=== PATIENT | male | born 1955 | race American Indian/Alaskan Native ===

== ENCOUNTER 2020-11-15 08:48 | Inpatient (IN) | payer MEDICARE ==
--- NOTE | 2020-11-15 09:00 | Consultation ---
History of Present Illness Consult date: 11/15/20 Reason for Consult: stroke History of present illness: [facility] Services Date of Service: 11/15/2020 08:43:39 Impression: I63.412 - Cerebrovascular accident (CVA) due to embolism of left middle cerebral artery (HCCC) Comments/Sign-Out: 65 yo M with mild aphasia (compounded by possible language barrier) and mild right sided weakness slight improvement on arrival. Completed areas of left MCA frontal lobe infarct subacute in appearance, with associated hyperdense L MCA distally. Suspect M2 occlusion clinically, verify with CTA to see if more proximal as that could indicate higher risk of larger MCAC territory stroke Given mild symptoms and completed stroke however risk of tPA/hemorrhagic transformation outweighs benefit. Metrics: Last Known Well: 11/15/2020 08:10:00 [facility] Notification Time: 11/15/2020 08:43:29 Arrival Time: 11/15/2020 08:48:00 Stamp Time: 11/15/2020 08:43:39 Time First Login Attempt: 11/15/2020 08:45:31 Symptoms: right sided weakness, confusion NIHSS Start Assessment Time: 11/15/2020 09:04:12 Patient is not a candidate for Alteplase/Activase. Patient was not deemed candidate for Alteplase/Activase thrombolytics because of Mild symptoms with completed stroke. CT head was reviewed and results were: L frontal lobe stroke, acute to subacute with loss of bellamy white as well as hypoattenuation presnet. Also hyperdense sign at L MCA trifurcation Clinical Presentation is Suggestive of Large Vessel Occlusive Disease, Recommendations are as Follows CTA Head and Neck. ED Physician notified of diagnostic impression and management plan on 11/15/2020 09:21:04 Our recommendations are outlined below. Recommendations: Activate Stroke Protocol Admission/Order Set Stroke/Telemetry Floor Neuro Checks Bedside Swallow Eval DVT Prophylaxis IV Fluids, Normal Saline Head of Bed 30 Degrees Euglycemia and Avoid Hyperthermia (PRN Acetaminophen) Antiplatelet Therapy Recommended Full dose aspirin and 300 mg plavix x1 now CTA head and neck STAT If evidence of LVO will call [facility] to discuss If no clot and/or no intervention possible then recommend admission for neuro checks and routine monitoring. Can continue aspirin 81 mg daily (family reports no hx antiplatlets) Routine Consultation with Inhouse Neurology for Follow up Care Sign Out: Discussed with Emergency Department Provider History of Present Illness: Patient is a 65 year old Male. Patient was brought by EMS for symptoms of right sided weakness, confusion 65 yo male hx HTN no prior stroke surgery [place] who had right sided arm weakness, no facial droop, confusion per EMS; family called EMS as this happened 30 min [employer]. Per sister he appeared normal but said he felt different. Then all of a sudden symptoms started in front of them. There may be a language barrier but he is able to name, easily say his phone number birthdate, spell individual letters and repeat (just not full sentences). He has mild pronation but no drift of right arm and mild leg drift with no facial droop. No field cut or sensory loss reported. CT shows acute subacute L MCA ischemic stroke Last seen normal was within 4.5 hours. There is no history of hemorrhagic complications or intracranial hemorrhage. There is no history of Recent Anticoagulants. There is no history of recent major surgery. There is no history of recent stroke. Past Medical History: Hypertension Examination: BP(190s systolic), Pulse(.), Blood Glucose(.) 1A: Level of Consciousness - Alert; keenly responsive + 0 1B: Ask Month and Age - Both Questions Right + 0 1C: Blink Eyes & Squeeze Hands - Performs Both Tasks + 0 2: Test Horizontal Extraocular Movements - Normal + 0 3: Test Visual [place] - No Visual Loss + 0 4: Test Facial Palsy (Use Grimace if Obtunded) - Normal symmetry + 0 5A: Test Left Arm Motor Drift - No Drift for 10 Seconds + 0 5B: Test Right Arm Motor Drift - Drift, but doesn't hit bed + 1 6A: Test Left Leg Motor Drift - No Drift for 5 Seconds + 0 6B: Test Right Leg Motor Drift - Drift, but doesn't hit bed + 1 7: Test Limb Ataxia (FNF/Heel-Fernandez) - No Ataxia + 0 8: Test Sensation - Normal; No sensory loss + 0 9: Test Language/Aphasia - Mild-Moderate Aphasia: Some Obvious Changes, Without Significant Limitation + 1 10: Test Dysarthria - Mild-Moderate Dysarthria: Slurring but can be understood + 1 11: Test Extinction/Inattention - No abnormality + 0 NIHSS Score: 4 Pre-Morbid Modified Ranking Scale: 0 Points = No symptoms at all Patient/Family was informed the Neurology Consult would happen via TeleHealth consult by way of interactive audio and video telecommunications and consented to receiving care in this manner. Due to the immediate potential for life-threatening deterioration due to underlying acute neurologic illness, I spent 35 minutes providing critical care. This time includes time for face to face visit via telemedicine, review of medical records, imaging studies and discussion of findings with providers, the patient and/or family. Dr Misha Ceja [facility] Case [id number]
--- NOTE | 2020-11-15 09:22 | Cat Scan Report ---
CT head/brain wo con INDICATION / CLINICAL INFORMATION: 65 years Male; MAIN. TECHNIQUE: Routine CT head without contrast. All CT scans at this location are performed using CT dos e reduction for ALARA by means of automated exposure control. COMPARISON: None. FINDINGS: BRAIN / INTRACRANIAL CONTENTS: There is decreased attenuation involving the lateral left frontal lobe as well as the frontoparietal junction compatible with infarcts at. There also appears be relative e ffacement along the lateral left frontal region indicative of more acute/subacute process, particular ly given the patient's history of. There is otherwise mild microvascular angiopathy. There is no CT ends of acute intracranial hemorrhag e. The ventricular system is within normal limits in size and configuration. There is a small focus o f relative increased attenuation projected along the left MCA trifurcation which may reflect focus of thrombus given the above findings. ORBITS: No significant abnormality of visualized orbits. SINUSES / MASTOIDS: There is a 2 cm retention cyst seen within the visualized right maxillary sinus. CRANIOCERVICAL JUNCTION: No significant abnormality. ADDITIONAL FINDINGS: None. IMPRESSION: 1. The findings are indicative of evolving infarct involving left frontal lobe as detailed above. The re is no CT ends of acute intracranial hemorrhage. The study was specified as code stroke and called emergently to Dr. Edwards in the ER at 8:15 AM Cent[facility] standard time. Signer Name: Nader Rossi MD Signed: 11/15/2020 9:18 AM Workstation Name: [id number]
--- NOTE | 2020-11-15 09:46 | XRay Report ---
CHEST 1 VIEW 9:09 AM INDICATION / CLINICAL INFORMATION: Neurologic deficit.. COMPARISON: None available. FINDINGS: SUPPORT DEVICES: None. HEART / MEDIASTINUM: The heart size and pulmonary vasculature are normal. LUNGS / PLEURA: Lung volumes are low without significant pulmonary or pleural abnormality. No pneumot horax. ADDITIONAL FINDINGS: No significant additional findings. IMPRESSION: No acute findings. Signer Name: Hua Sotomayor MD Signed: 11/15/2020 9:41 AM Workstation Name: [id number]
[2020-11-15] MEDS ORDERED: ASPIRIN 325 MG TAB PO ONE ×2 (09:58→16:14)
--- NOTE | 2020-11-15 10:04 | Emergency Department Report ---
ED Neuro Deficit HPI - General Stated Complaint: CVA Time Seen by Provider: 11/15/20 09:26 - History of Present Illness Initial Comments: This is a 65-year-old man who does speak [place]ian from [place] arriving as a code stroke. The last known well time was communicated as close to 8:30 in the morning. However CT scan is indicative of a subacute to acute stroke with significant radiographic findings already. The patient is aphasic and he is unable to provide historical information. The has substantial Bulgarian problems and is not tremendously helpful either. As far as I can tell this juncture the patient has a history of hypertension. His compliance with medication is unknown. does not seem to be significantly aware of his medication status. There is no prior history of stroke known. At or about the supposed last well time the patient developed confusion which appears to be aphasia. Paramedics did note right-sided drift. At the door I found moderate right arm drift and questionable left lower extremity drift but the patient could not be adequately examined. He was later given appointment for either on neurologist examination. Indeed, on my reassessment he was apparently less weak in the right upper extremity with pronator drift only and mild weakness of the right lower extremity detectable on drift testing. CT exam was reviewed by the radiologist and discussed with me. The patient has substantial findings consistent with a stroke certainly greater than 6 hours and consequently outside of the window for safe administration of TPA. The patient does have precentral gyrus effacement on the left, edema, hypoattenuation in the left frontal region. He was deemed not a candidate for TPA upon discussion with the teleneurologist. -: unknown (Somewhat uncertain) Location: right arm, right leg History of same: No Place: home Severity: moderate Quality: weak Improves With: none Worsens With: none On Anticoagulants: No Context: other (Uncertain but said to be as above) Associated Symptoms: denies other symptoms (Apparently negative but patient aphasic. Nothing referred by ) Treatments Prior to Arrival: none ED Review of Systems ROS: Stated complaint: CVA Other details as noted in HPI Comment: Unobtainable due to pts medical conditions ED Past Medical Hx - Past Medical History Hx Hypertension: Yes - Social History Substance Use Type: None ED Neuro Physical Exam - General Limitations: Other (Aphasia) General appearance: alert, in no apparent distress Suspected Stroke: Yes - Head Head exam: Present: atraumatic, normocephalic - Eye Eye exam: Present: normal appearance. Absent: scleral icterus - ENT ENT exam: Present: mucous membranes moist - Neck Neck exam: Present: normal inspection. Absent: meningismus - Respiratory Respiratory exam: Present: normal lung sounds bilaterally. Absent: respiratory distress - Cardiovascular Cardiovascular Exam: Present: regular rate, normal rhythm. Absent: systolic murmur, diastolic murmur, rubs, gallop - GI/Abdominal GI/Abdominal exam: Present: soft, normal bowel sounds. Absent: distended, tenderness, guarding, rebound - Rectal Rectal exam: Present: deferred - Extremities Exam Extremities exam: Present: normal inspection - Back Exam Back exam: Present: normal inspection - Neurological Exam Neurological exam: Present: alert, oriented X3, CN II-XII intact (As testable), motor sensory deficit - NIHSS Assessment Interval: Baseline 1a. Level of Consciousness: alert/keenly responsive 1b. LOC Questions: answers both correctly 1c. LOC Commands: performs tasks correctly 2. Best Gaze: normal 3. Visual: no visual loss 4. Facial Palsy: normal symmetrical movement 5b. Motor Arm Right: drift 5a. Motor Arm Left: no drift 6a. Motor Leg Left: no drift 6b. Motor Leg Right: drift 7. Limb Ataxia: absent 8. Sensory: normal 9. Best Language: mild/moderate aphasia 10. Dysarthria: mild/moderate dysarthria 11. Extinction/Inattention: no abnormality Total Score: 4 Stroke Severity: Minor Stroke - Psychiatric Psychiatric exam: Present: normal affect, normal mood - Skin Skin exam: Present: warm, dry, intact, normal color. Absent: rash ED Course Vital Signs 11/15/20 11/15/20 11/15/20 10:09 10:49 10:52 Temperature 98.2 F Pulse Rate 86 86 Respiratory 18 18 Rate Blood Pressure 195/82 184/76 Blood Pressure 195/86 [Right] O2 Sat by Pulse 100 100 Oximetry - Reevaluation(s) Reevaluation #1: Patient will have gentle reduction of his blood pressure if it exceeds parameters. I placed a right EJ in his neck due to lack of peripheral access. CTAs are pending. The patient will be admitted to the hospitalist service for further care and evaluation. 11/15/20 10:08 Reevaluation #2: Patient's only access so far is an EJ in his neck. Radiology will not do CTA studies from the thigh. Teleneurology is aware. They recommended MRI studies after admission. 11/15/20 12:37 Reevaluation #3: Teleneurology recommended only gentle reduction of the blood pressure. 11/15/20 12:39 - EJ/Peripheral Line Neck R Time Out Performed: No Indications: nurses unable to establis Skin Cleansed in Sterile Fashion: Yes Size: 20 Dressing Placed: Tegaderm Patient Tolerated Procedure: no complications - Lab Data Result diagrams: 11/15/20 09:43 11/15/20 09:43 Lab Results 11/15/20 11/15/20 11/15/20 Range/Units 09:34 09:43 09:43 WBC 7.3 (4.5-11.0) K/mm3 RBC 4.78 (3.65-5.03) M/mm3 Hgb 14.6 (11.8-15.2) gm/dl Hct 42.8 (35.5-45.6) % MCV 89 (84-94) fl MCH 30 (28-32) pg MCHC 34 (32-34) % RDW 13.5 (13.2-15.2) % Plt Count 232 (140-440) K/mm3 Lymph % (Auto) 24.3 (13.4-35.0) % [place] % (Auto) 4.9 (0.0-7.3) % Eos % (Auto) 3.1 (0.0-4.3) % Baso % (Auto) 0.6 (0.0-1.8) % Lymph # (Auto) 1.8 (1.2-5.4) K/mm3 [place] # (Auto) 0.4 (0.0-0.8) K/mm3 Eos # (Auto) 0.2 (0.0-0.4) K/mm3 Baso # (Auto) 0.0 (0.0-0.1) K/mm3 Seg Neutrophils % 67.1 (40.0-70.0) % Seg Neutrophils # 4.9 (1.8-7.7) K/mm3 PT 12.7 (12.2-14.9) Sec. INR 0.96 (0.87-1.13) APTT 30.4 (24.2-36.6) Sec. Thrombin Time 16.9 (15.1-19.6) Sec. Sodium (137-145) mmol/L Potassium (3.6-5.0) mmol/L Chloride (98-107) mmol/L Carbon Dioxide (22-30) mmol/L Anion Gap mmol/L BUN (9-20) mg/dL Creatinine (0.8-1.3) mg/dL Estimated GFR ml/min BUN/Creatinine Ratio % Glucose (75-100) mg/dL POC Glucose 99 (70-105) mg/dL Calcium (8.4-10.2) mg/dL Magnesium (1.7-2.3) mg/dL Total Bilirubin (0.1-1.2) mg/dL Direct Bilirubin (0-0.2) mg/dL Indirect Bilirubin mg/dL AST (5-40) units/L ALT (7-56) units/L Alkaline Phosphatase (35-129) units/L Troponin T (0.00-0.029) ng/mL NT-Pro-B Natriuret Pep (0-900) pg/mL Total Protein (6.3-8.2) g/dL Albumin (3.9-5) g/dL Albumin/Globulin Ratio % //20 Range/Units 09:43 WBC (4.5-11.0) K/mm3 RBC (3.65-5.03) M/mm3 Hgb (11.8-15.2) gm/dl Hct (35.5-45.6) % MCV (84-94) fl MCH (28-32) pg MCHC (32-34) % RDW (13.2-15.2) % Plt Count (140-440) K/mm3 Lymph % (Auto) (13.4-35.0) % [place] % (Auto) (0.0-7.3) % Eos % (Auto) (0.0-4.3) % Baso % (Auto) (0.0-1.8) % Lymph # (Auto) (1.2-5.4) K/mm3 [place] # (Auto) (0.0-0.8) K/mm3 Eos # (Auto) (0.0-0.4) K/mm3 Baso # (Auto) (0.0-0.1) K/mm3 Seg Neutrophils % (40.0-70.0) % Seg Neutrophils # (1.8-7.7) K/mm3 PT (12.2-14.9) Sec. INR (0.87-1.13) APTT (24.2-36.6) Sec. Thrombin Time (15.1-19.6) Sec. Sodium 141 (137-145) mmol/L Potassium 3.8 (3.6-5.0) mmol/L Chloride 105.7 (98-107) mmol/L Carbon Dioxide 22 (22-30) mmol/L Anion Gap 17 mmol/L BUN 13 (9-20) mg/dL Creatinine 0.9 (0.8-1.3) mg/dL Estimated GFR > 60 ml/min BUN/Creatinine Ratio 14 % Glucose 118 H (75-100) mg/dL POC Glucose (70-105) mg/dL Calcium 9.5 (8.4-10.2) mg/dL Magnesium 2.00 (1.7-2.3) mg/dL Total Bilirubin 0.60 (0.1-1.2) mg/dL Direct Bilirubin < 0.2 (0-0.2) mg/dL Indirect Bilirubin 0.4 mg/dL AST 27 (5-40) units/L ALT 21 (7-56) units/L Alkaline Phosphatase 59 (35-129) units/L Troponin T < 0.010 (0.00-0.029) ng/mL NT-Pro-B Natriuret Pep 240.5 (0-900) pg/mL Total Protein 8.1 (6.3-8.2) g/dL Albumin 4.4 (3.9-5) g/dL Albumin/Globulin Ratio 1.2 % Laboratory Results - last 24 hr 11/15/20 09:34 POC Glucose 99 - EKG Data -: EKG Interpreted by Me (Pending) - Radiology Data Radiology results: image reviewed BRAIN / INTRACRANIAL CONTENTS: There is decreased attenuation involving the lateral left frontal lobe as well as the frontoparietal junction compatible with infarcts at. There also appears be rela tive effacement along the lateral left frontal region indicative of more acute/subacute process, particularly given the patient's history of. There is otherwise mild microvascular angiopathy. There is no CT ends of acute intracranial hemorrhage. The ventricular system is within normal limits in size and configuration. There is a small focus of relative increased attenuation projected along the left MCA trifurcation which may reflect focus of thrombus given the above findings. ORBITS: No significant abnormality of visualized orbits. SINUSES / MASTOIDS: There is a 2 cm retention cyst seen within the visualized right maxillary sinus. CRANIOCERVICAL JUNCTION: No significant abnormality. ADDITIONAL FINDINGS: None. IMPRESSION: 1. The findings are indicative of evolving infarct involving left frontal lobe as detailed above. There is no CT ends of acute intracranial hemorrhage. - Medical Decision Making Patient was deemed not to be a candidate for TPA due to evolving stroke of g reater than 6 hours and onset. CTA is pending. - Thrombolytic Inclusion/Exclusion Thrombolytic Exclusion Criteria: Symptom Onset > 3 Hours Critical Care Time: Yes Critical care time in (mins) excluding proc time.: 65 Critical care attestation.: If time is entered above; I have spent that time in minutes in the direct care of this critically ill patient, excluding procedure time. ED Disposition Clinical Impression: Uncontrolled hypertension CVA (cerebral vascular accident) Qualifiers: CVA mechanism: unspecified Qualified Code(s): I63.9 - Cerebral infarction, unspecified Disposition: DC-09 OP ADMIT IP TO THIS HOSP Is pt being admited?: Yes Does the pt Need Aspirin: Yes Condition: Stable Instructions: Hypertension (ED) Referrals: ANNABELLE MEHTA MD [Primary Care Provider] - 3-5 Days Time of Disposition: 12:39
[2020-11-15 10:40] LABS: Basophils % (Auto) 0.6 % (0.0-1.8); Eosinophils # (Auto) 0.2 K/mm3 (0.0-0.4); Eosinophils % (Auto) 3.1 % (0.0-4.3); Hematocrit 42.8 % (35.5-45.6); Hemoglobin 14.6 gm/dl (11.8-15.2); Lymphocytes # (Auto) 1.8 K/mm3 (1.2-5.4); Lymphocytes % (Auto) 24.3 % (13.4-35.0); Mean Corpuscular HGB Conc 34 % (32-34); Mean Corpuscular Volume 89 fl (84-94); Monocytes # (Auto) 0.4 K/mm3 (0.0-0.8); Monocytes % (Auto) 4.9 % (0.0-7.3); Platelet Count 232 K/mm3 (140-440); Red Blood Count 4.78 M/mm3 (3.65-5.03); Red Cell Distribution Width 13.5 % (13.2-15.2)
[2020-11-15 10:48] LABS: INR 0.96 (0.87-1.13)
[2020-11-15 10:49] LABS: Partial Thromboplastin Time 30.4 Sec. (24.2-36.6); Thrombin Time 16.9 Sec. (15.1-19.6)
[2020-11-15 10:56] LABS: Alanine Aminotransferase 21 units/L (7-56); Albumin 4.4 g/dL (3.9-5); BUN/Creatinine Ratio 14; Blood Urea Nitrogen 13 mg/dL (9-20); Calcium 9.5 mg/dL (8.4-10.2); Hemolysis Index 33
[2020-11-15 11:00] LABS: Bilirubin,Direct < 0.2 mg/dL (0-0.2)
[2020-11-15] MEDS ORDERED: PROMETHAZINE 25 MG RECT SUPP PR PRN (13:20)
[2020-11-15] MEDS ORDERED: METOCLOPRAMIDE 10 MG TAB PO PRN (13:20)
[2020-11-15] MEDS ORDERED: MAGNESIUM HYDROXIDE (MOM) ORAL LIQD UDC PO PRN (13:20)
[2020-11-15] MEDS ORDERED: ACETAMINOPHEN 325 MG TAB PO PRN (13:20)
[2020-11-15] MEDS ORDERED: ONDANSETRON 4 MG/2 ML INJ IV PRN (13:20)
--- NOTE | 2020-11-15 17:39 | Cat Scan Report ---
CT angio neck INDICATION / CLINICAL INFORMATION: 65 years Male; left MCA stroke. TECHNIQUE: Thin cut axial images obtained through the head during IV bolus contrast administration. S agittal, coronal, and 3 plane MIP reconstructions performed by the technologist. NASCET type criteria used evaluate stenoses. All CT scans at this location are performed using CT dose reduction for ALAR A by means of automated exposure control. COMPARISON: None available. FINDINGS: CAROTID ARTERIES: There is atherosclerotic calcification along the lateral proximal left ICA with ember roximately 40-50% stenosis at the level of the distal left carotid bulb by NASCET criteria. Mild plaq ue is also seen involving more distal segment of the cervical left ICA without significant narrowing. There is no significant stenosis involving right carotid arteries by NASCET criteria. VERTEBRAL ARTERIES: There is diffuse small caliber of the cervical right vertebral artery which appea rs reflect developmental hypoplasia. The left vertebral artery is clearly dominant. There is a focus of calcification involving the left vertebral artery at the C3 level with mild degree of stenosis. ARCH: There is no CTA evidence of significant narrowing involving visualized origins of the arch vess els. There appears be common origin of the brachiocephalic and left common carotid arteries which rep resents a developmental variant. ADDITIONAL FINDINGS: Remainder of the surrounding soft tissues are grossly normal. IMPRESSION: There is atherosclerotic calcification involving the proximal left ICA with 40-50% stenosis by NASCET criteria as detailed above. 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 The CTA head will be dictated separately. Signer Name: Nader Rossi MD Signed: 11/15/2020 5:34 PM Workstation Name: [id number]
--- NOTE | 2020-11-15 17:49 | Cat Scan Report ---
CT angio head INDICATION / CLINICAL INFORMATION: 65 years Male; MAIN. TECHNIQUE: Thin cut axial images obtained through the head during IV bolus contrast administration. S agittal, coronal, and 3 plane MIP reconstructions performed by the technologist. NASCET type criteria used evaluate stenoses. Automated exposure control utilized for radiation reduction purposes. COMPARISON: None available. FINDINGS: INTERNAL CAROTID ARTERIES: There is notable irregularity of the distal internal carotid arteries with atherosclerotic calcification. Findings most notably involving distal left ICA, particularly at the clinoid segment with marked narrowing at. There is moderate narrowing of the corresponding this segme nt on the right. 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 The left vertebral artery is clearly dominant and continues as the basilar artery without significant focal narrowing. CEREBRAL ARTERIES: There is relative decreased attenuation involving the high left lateral frontal co rtical region which correlates with the earlier CT and would be indicative of evolving infarct. Furth ermore, there is relative decreased opacification of the distal vessels within this region compatible with reduced flow. There is also mild irregularity of the more proximal left MCA branches indicative of mild atherosclerotic disease. However, there is no clear further evidence of significant stenosis proximally. There is also developmental hypoplasia of the A1 segment of the right MAY. The right MCA branches ember ear unremarkable. ANEURYSM: None identified. ADDITIONAL FINDINGS: There is notable hypoplasia of the left transverse and sigmoid sinuses which als o appears to be developmental. IMPRESSION: The findings correlate with the earlier CT indicative of evolving infarct involving the high lateral left frontal cortical region. Additionally, there is paucity of vessels within this region on the cur rent CTA compatible with reduced flow. There is notable atherosclerotic calcification involving distal internal carotid arteries, particular ly the clinoid segments with marked narrowing on the left and moderate on the right. 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 Signer Name: Nader Rossi MD Signed: 11/15/2020 5:45 PM Workstation Name: [id number]
--- NOTE | 2020-11-15 18:41 | History and Physical Report ---
History of Present Illness Date of admission: 11/15/20 13:56 Chief complaint: He is weak on his right side History of present illness: 65 YO Male with Obesity Hypoventilation Syndrome, HTN presents to ED for evaluation. Patient is aphasic and is unable to provide history. Patient history is provided by the patient's . As per the patient was in his usual state of health at approximately 0830 hrs. this morning. The patient was subsequently found to have right sided weakness and difficulty speaking. EMS was notified and upon arrival the patient was found to be in distress with a focal neurologic deficit. A code stroke was called and the patient was transported to [facility] for further care and evaluation of the aforementioned symptoms. The patient was seen and evaluated in the emergency department. All lab and imaging studies reviewed. The patient was found to have clinical symptoms consistent with CVA. The patient was placed in observation status and admitted to medical floor and initiated on CVA protocol. The patient was also found to have accelerated hypertension. No reports of fever, chills, chest pain, palpitation, productive cough, skin rash, recent ill contacts, or known exposure to COVID-19. No prior admission for review. No medication listed at time of admission for reconciliation. The patient is aphasic but has a positive gag reflex and is able to protect his airway without difficulty. Advanced care planning conducted in ED. Teleneurology consult placed in ED. Past History Past Medical History: hypertension, other (See HPI) Past Surgical History: No surgical history, Other Social history: . denies: smoking, alcohol abuse Family history: hypertension Medications and Allergies Allergies Allergy/AdvReac Type Severity Reaction Status Date / Time No Known Allergies Allergy Unverified 11/15/20 15:06 Active Meds: Active Medications Acetaminophen (Acetaminophen 325 Mg Tab) 650 mg PO Q4H PRN PRN Reason: Pain, Mild (1-3) Atorvastatin Calcium (Atorvastatin 40 Mg Tab) 40 mg PO QHS DARSHAN Bisacodyl (Bisacodyl 10 Mg Rect Supp) 10 mg GA QDAY PRN PRN Reason: Constipation Clopidogrel Bisulfate (Clopidogrel 75 Mg Tab) 75 mg PO QDAY DARSHAN Magnesium Hydroxide (Magnesium Hydroxide (Mom) Oral Liqd Udc) 30 ml PO Q4H PRN PRN Reason: Constipation Metoclopramide HCl (Metoclopramide 10 Mg Tab) 10 mg PO Q6H PRN PRN Reason: Nausea And Vomiting Ondansetron HCl (Ondansetron 4 Mg/2 Ml Inj) 4 mg IV Q8H PRN PRN Reason: Nausea And Vomiting Promethazine HCl (Promethazine 25 Mg Rect Supp) 25 mg GA Q6H PRN PRN Reason: Nausea And Vomiting Sodium Chloride (Sodium Chloride 0.9% 10 Ml Flush Syringe) 10 ml IV PRN PRN PRN Reason: LINE FLUSH Review of Systems ROS unobtainable: due to mental status Exam - Constitutional Vitals: Temp Pulse Resp BP Pulse Ox 98.2 F 77 17 175/93 97 11/15/20 10:09 11/15/20 16:01 11/15/20 16:01 11/15/20 11:19 11/15/20 16:01 General appearance: Present: no acute distress, obese - EENT Eyes: Present: PERRL ENT: hearing intact, clear oral mucosa - Neck Neck: Present: supple, normal ROM - Respiratory Respiratory effort: normal Respiratory: bilateral: CTA - Cardiovascular Heart Sounds: Present: S1 & S2. Absent: rub, click - Extremities Extremities: pulses symmetrical, No edema Peripheral Pulses: within normal limits - Abdominal General gastrointestinal: Present: soft, non-tender, non-distended, normal bowel sounds Male genitourinary: Present: normal - Integumentary Integumentary: Present: clear, warm, dry - Musculoskeletal Musculoskeletal: right sided weakness - Psychiatric Psychiatric: cooperative - Neurologic Neurologic: CNII-XII intact, moves all extremities, no gait normal HEART Score - HEART Score Troponin: Troponin T < 0.010 ng/mL (0.00-0.029) 11/15/20 09:43 Results - Labs CBC & Chem 7: 11/15/20 09:43 11/15/20 09:43 Labs: Abnormal lab results 11/15/20 Range/Units 09:43 Glucose 118 H (75-100) mg/dL Assessment and Plan - Patient Problems (1) CVA (cerebral vascular accident) Current Visit: Yes Status: Acute Qualifiers: CVA mechanism: unspecified Qualified Code(s): I63.9 - Cerebral infarction, unspecified Plan to address problem: CVA protocol: CT head, neuro check, seizure precautions, aspiration precautions, physical therapy consulted, Occupational Therapy consulted, speech therapy consulted, lipid panel, statin therapy, antiplatelet therapy, supportive care. Teleneurology consulted in ED. Carotid Doppler, echocardiogram. (2) Right hemiparesis Current Visit: Yes Status: Acute Plan to address problem: Physical therapy consulted, supportive care. (3) Obesity hypoventilation syndrome Current Visit: Yes Status: Acute Plan to address problem: Balanced diet, increase physical activity at discharge, outpatient pulmonary follow-up for sleep study. Noninvasive positive pressure ventilation as clinically indicated. (4) Uncontrolled hypertension Current Visit: Yes Status: Acute Plan to address problem: Monitor blood pressure every shift, continue medical management. Permissive hypertension overnight. (5) DVT prophylaxis Current Visit: Yes Status: Acute Plan to address problem: SCD to bilateral lower extremities while in bed, prophylactic anticoagulation (6) Advance care planning Current Visit: Yes Status: Acute Plan to address problem: Disease education conducted, patient is full code, prognosis discussed, care plan discussed, patient's acknowledges understanding and agreement with care plan, +30 minutes.
[2020-11-16 06:52] LABS: Chol/HDL Ratio 3.91 %
--- NOTE | 2020-11-16 10:49 | Progress Note ---
Assessment and Plan Assessment and plan: 65 YO Male with Obesity Hypoventilation Syndrome, HTN presents to ED for evaluation. Patient is aphasic and is unable to provide history. Patient history is provided by the patient's . As per the patient was in his usual state of health at approximately 0830 hrs. this morning. The patient was subsequently found to have right sided weakness and difficulty speaking. EMS was notified and upon arrival the patient was found to be in distress with a focal neurologic deficit. A code stroke was called and the patient was transported to [facility] for further care and evaluation of the aforementioned symptoms. The patient was seen and evaluated in the emergency department. All lab and imaging studies reviewed. The patient was found to have clinical symptoms consistent with CVA. The patient was placed in observation status and admitted to medical floor and initiated on CVA protocol. The patient was also found to have accelerated hypertension. No reports of fever, chills, chest pain, palpitation, productive cough, skin rash, recent ill contacts, or known exposure to COVID-19. No prior admission for review. No medication listed at time of admission for reconciliation. The patient is aphasic but has a positive gag reflex and is able to protect his airway without difficulty. Advanced care planning conducted in ED. Teleneurology consult placed in ED. As per neurology, patient was started on aspirin and loaded with Plavix. CT head performed showed left frontal lobe infarcts. CTA head and neck showed no significant stenosis. Patient has been started on statins. 11/16. Patient remains aphasic. Reportedly passed a swallow evaluation. MRI brain has been ordered. PT/OT pending. Assessment and Plan - Patient Problems (1) CVA (cerebral vascular accident) Current Visit: Yes Status: Acute Qualifiers: CVA mechanism: unspecified Qualified Code(s): I63.9 - Cerebral infarction, unspecified Plan to address problem: CT head showed left frontal lobe infarct. CTA head and neck-negative significant stenosis MRI brain without contrast ordered Echocardiogram pending Neurology evaluation pending Continue Plavix and statins PT/OT ordered Needs speech therapy evaluation for dysphasia (2) Right hemiparesis Current Visit: Yes Status: Acute Plan to address problem: Physical therapy consulted, supportive care. (3) Obesity hypoventilation syndrome Current Visit: Yes Status: Acute Plan to address problem: Balanced diet, increase physical activity at discharge, outpatient pulmonary follow-up for sleep study. Noninvasive positive pressure ventilation as clinically indicated. (4) Uncontrolled hypertension Current Visit: Yes Status: Acute Plan to address problem: Permissive hypertension for 24 to 48 hours (5) DVT prophylaxis Current Visit: Yes Status: Acute Plan to address problem: SCD to bilateral lower extremities while in bed, prophylactic anticoagulation (6) Advance care planning Current Visit: Yes Status: Acute Plan to address problem: Disease education conducted, patient is full code, prognosis discussed, care plan discussed, patient's acknowledges understanding and agreement with care plan, +30 minutes. History Interval history: Patient still has dysphasia Neurology consulted. Awaiting MRI brain Hospitalist Physical - Physical exam Narrative exam: VITAL SIGNS: Reviewed. GENERAL: Awake HEAD: No signs of head trauma. EYES: Pupils are equal. Extraocular motions intact. MOUTH: Oropharynx is normal. NECK: No adenopathy, no JVD. CHEST: Chest with diminished breath sounds bilaterally. No wheezes, rales, or rhonchi. CARDIAC: normal S1 and S2, without murmurs, gallops, or rubs. ABDOMEN: Soft, non tender and non distended. No rebound or guarding, and no masses palpated. Bowel Sounds normal. MUSCULOSKELETAL: No edema NEUROLOGIC EXAM: Alert and oriented x3. Has dysphasia SKIN: No obvious lesions - Constitutional Vitals: Temp Pulse Resp BP Pulse Ox 98.5 F 72 20 165/79 96 11/16/20 05:06 11/16/20 05:06 11/16/20 05:06 11/16/20 05:06 11/16/20 08:31 HEART Score - HEART Score Troponin: Troponin T < 0.010 ng/mL (0.00-0.029) 11/15/20 09:43 Results - Labs CBC & Chem 7: 11/15/20 09:43 11/15/20 09:43 Labs: Laboratory Last Values WBC 7.3 K/mm3 (4.5-11.0) 11/15/20 09:43 RBC 4.78 M/mm3 (3.65-5.03) 11/15/20 09:43 Hgb 14.6 gm/dl (11.8-15.2) 11/15/20 09:43 Hct 42.8 % (35.5-45.6) 11/15/20 09:43 MCV 89 fl (84-94) 11/15/20 09:43 MCH 30 pg (28-32) 11/15/20 09:43 MCHC 34 % (32-34) 11/15/20 09:43 RDW 13.5 % (13.2-15.2) 11/15/20 09:43 Plt Count 232 K/mm3 (140-440) 11/15/20 09:43 Lymph % (Auto) 24.3 % (13.4-35.0) 11/15/20 09:43 Loup % (Auto) 4.9 % (0.0-7.3) 11/15/20 09:43 Eos % (Auto) 3.1 % (0.0-4.3) 11/15/20 09:43 Baso % (Auto) 0.6 % (0.0-1.8) 11/15/20 09:43 Lymph # (Auto) 1.8 K/mm3 (1.2-5.4) 11/15/20 09:43 Loup # (Auto) 0.4 K/mm3 (0.0-0.8) 11/15/20 09:43 Eos # (Auto) 0.2 K/mm3 (0.0-0.4) 11/15/20 09:43 Baso # (Auto) 0.0 K/mm3 (0.0-0.1) 11/15/20 09:43 Seg Neutrophils % 67.1 % (40.0-70.0) 11/15/20 09:43 Seg Neutrophils # 4.9 K/mm3 (1.8-7.7) 11/15/20 09:43 PT 12.7 Sec. (12.2-14.9) 11/15/20 09:43 INR 0.96 (0.87-1.13) 11/15/20 09:43 APTT 30.4 Sec. (24.2-36.6) 11/15/20 09:43 Thrombin Time 16.9 Sec. (15.1-19.6) 11/15/20 09:43 Sodium 141 mmol/L (137-145) 11/15/20 09:43 Potassium 3.8 mmol/L (3.6-5.0) 11/15/20 09:43 Chloride 105.7 mmol/L (98-107) 11/15/20 09:43 Carbon Dioxide 22 mmol/L (22-30) 11/15/20 09:43 Anion Gap 17 mmol/L 11/15/20 09:43 BUN 13 mg/dL (9-20) 11/15/20 09:43 Creatinine 0.9 mg/dL (0.8-1.3) 11/15/20 09:43 Estimated GFR > 60 ml/min 11/15/20 09:43 BUN/Creatinine Ratio 14 % 11/15/20 09:43 Glucose 118 mg/dL (75-100) H 11/15/20 09:43 POC Glucose 91 mg/dL (70-105) 11/15/20 21:19 Calcium 9.5 mg/dL (8.4-10.2) 11/15/20 09:43 Magnesium 2.00 mg/dL (1.7-2.3) 11/15/20 09:43 Total Bilirubin 0.60 mg/dL (0.1-1.2) 11/15/20 09:43 Direct Bilirubin < 0.2 mg/dL (0-0.2) 11/15/20 09:43 Indirect Bilirubin 0.4 mg/dL 11/15/20 09:43 AST 27 units/L (5-40) 11/15/20 09:43 ALT 21 units/L (7-56) 11/15/20 09:43 Alkaline Phosphatase 59 units/L (35-129) 11/15/20 09:43 Troponin T < 0.010 ng/mL (0.00-0.029) 11/15/20 09:43 NT-Pro-B Natriuret Pep 240.5 pg/mL (0-900) 11/15/20 09:43 Total Protein 8.1 g/dL (6.3-8.2) 11/15/20 09:43 Albumin 4.4 g/dL (3.9-5) 11/15/20 09:43 Albumin/Globulin Ratio 1.2 % 11/15/20 09:43 Triglycerides 101 mg/dL (2-149) 11/16/20 05:52 Cholesterol 176 mg/dL (50-199) 11/16/20 05:52 LDL Cholesterol Direct 123 mg/dL (50-130) 11/16/20 05:52 HDL Cholesterol 45 mg/dL (40-59) 11/16/20 05:52 Cholesterol/HDL Ratio 3.91 % 11/16/20 05:52 Dominique/IV: Voiding Method Condom Catheter IV Catheter Type [Right INT / Saline Lock Antecubital] IV Catheter Type [Right INT / Saline Lock External Jugular] Active Medications - Current Medications Current Medications: Generic Name Dose Route Start Last Admin Trade Name Freq PRN Reason Stop Dose Admin Acetaminophen 650 mg 11/15/20 13:20 Acetaminophen 325 Mg Tab PO Q4H PRN Pain, Mild (1-3) Atorvastatin Calcium 80 mg 11/16/20 22:00 Atorvastatin 40 Mg Tab PO QHS DARSHAN Bisacodyl 10 mg 11/15/20 13:20 Bisacodyl [address] QDAY PRN Constipation Clopidogrel Bisulfate 75 mg 11/16/20 10:00 Clopidogrel 75 Mg Tab PO QDAY DARSHAN Magnesium Hydroxide 30 ml 11/15/20 13:20 Magnesium Hydroxide (Mom) Oral Liqd Udc PO Q4H PRN Constipation Metoclopramide HCl 10 mg 11/15/20 13:20 Metoclopramide 10 Mg Tab PO Q6H PRN Nausea And Vomiting Ondansetron HCl 4 mg 11/15/20 13:20 Ondansetron 4 Mg/2 Ml Inj IV Q8H PRN Nausea And Vomiting Promethazine HCl 25 mg 11/15/20 13:20 Promethazine [address] Q6H PRN Nausea And Vomiting Sodium Chloride 10 ml 11/15/20 13:20 Sodium Chloride 0.9% 10 Ml Flush Syringe IV PRN PRN LINE FLUSH
[2020-11-16] MEDS: CLOPIDOGREL 75 MG TAB PO SCH (12:38)
[2020-11-17] MEDS: amLODIPine 10 MG TAB PO SCH ×2 (06:06→10:47)
[2020-11-17] MEDS: CLOPIDOGREL 75 MG TAB PO SCH (10:47)
--- NOTE | 2020-11-17 10:55 | Magnetic Resonance Report ---
NONENHANCED MR SCAN OF THE BRAIN: INDICATION / CLINICAL INFORMATION: CVA. TECHNIQUE: Multiplanar, multisequence MR images of the brain obtained. COMPARISON: CT scan of the head, CTA of the head from 11/15/2020 FINDINGS: BRAIN / INTRACRANIAL CONTENTS: Subacute ischemia in the left middle frontal gyrus extending towards t he left centrum semiovale wall; insular cortex normal; focal cortical subacute ischemia in the left p osterior parietal cortex; internal border zone ischemia in the left centrum semiovale wall; focal pun ctate area of subacute ischemia in the left posterior central gyrus and superior parietal lobule; isc hemia more than 12 hours old (increased T2 signal intensity) but less than 3 days old (low ADC value) ; no hemorrhagic changes Chronic ischemic changes in the right posterior putamen, left caudate head Periventricular and deep hemispheric white matter lesions due to chronic small vessel disease CRANIOCERVICAL JUNCTION: No significant abnormality. VASCULAR FLOW-VOIDS: Normal flow signal in the internal carotid arteries and basilar artery; delayed arterial circulation in the left parietal and frontal region in the CTA ORBITS: No significant abnormality of visualized orbits. SINUSES / MASTOIDS: Mucous retention cyst in the right maxillary sinus ADDITIONAL FINDINGS: None. IMPRESSION: 1. Nonhemorrhagic subacute ischemia in the left cerebral hemisphere Signer Name: Delmi Tavarez MD Signed: 11/17/2020 10:51 AM Workstation Name: [id number]
--- NOTE | 2020-11-17 11:25 | Consultation ---
History of Present Illness Consult date: 11/17/20 Reason for Consult: CVA Chief complaint: Right arm weakness and language difficulty History of present illness: 65 yo male with htn, presenting with acute onset of right arm weakness w/ dysphasia with the initial NCHCT revealing a left frontal ischemic stroke. Patient underwent a CTA Head/Neck w/ wo contrast which reveals ipsilateral distal ICA severe stenosis and proximal 40-50% stenosis. Past History Past Medical History: hypertension, other (See HPI) Past Surgical History: No surgical history, Other Social history: . denies: smoking, alcohol abuse Family history: hypertension Medications and Allergies Allergies Allergy/AdvReac Type Severity Reaction Status Date / Time No Known Allergies Allergy Unverified 11/15/20 15:06 Active Meds: Active Medications Acetaminophen (Acetaminophen 325 Mg Tab) 650 mg PO Q4H PRN PRN Reason: Pain, Mild (1-3) Amlodipine Besylate (Amlodipine 10 Mg Tab) 10 mg PO QDAY [facility] Last Admin: 11/17/20 10:47 Dose: 10 mg Documented by: Atorvastatin Calcium (Atorvastatin 40 Mg Tab) 80 mg PO QHS [facility] Last Admin: 11/16/20 22:06 Dose: 80 mg Documented by: Bisacodyl (Bisacodyl 10 Mg Rect Supp) 10 mg MS QDAY PRN PRN Reason: Constipation Clopidogrel Bisulfate (Clopidogrel 75 Mg Tab) 75 mg PO QDAY [facility] Last Admin: 11/17/20 10:47 Dose: 75 mg Documented by: Labetalol HCl (Labetalol 20 Mg/4 Ml Inj) 10 mg IV Q8HR PRN PRN Reason: Blood Pressure Last Admin: 11/16/20 18:42 Dose: 10 mg Documented by: Magnesium Hydroxide (Magnesium Hydroxide (Mom) Oral Liqd Udc) 30 ml PO Q4H PRN PRN Reason: Constipation Metoclopramide HCl (Metoclopramide 10 Mg Tab) 10 mg PO Q6H PRN PRN Reason: Nausea And Vomiting Ondansetron HCl (Ondansetron 4 Mg/2 Ml Inj) 4 mg IV Q8H PRN PRN Reason: Nausea And Vomiting Promethazine HCl (Promethazine 25 Mg Rect Supp) 25 mg MS Q6H PRN PRN Reason: Nausea And Vomiting Sodium Chloride (Sodium Chloride 0.9% 10 Ml Flush Syringe) 10 ml IV PRN PRN PRN Reason: LINE FLUSH Physical Examination - Vital Signs Vital Signs: Vital Signs Pulse Ox 99 11/15/20 09:10 - Physical Exam Narrative exam: Patient is not seen in the room. Results - Laboratory Findings CBC and BMP: 11/15/20 09:43 11/15/20 09:43 Abnormal Lab Findings: Abnormal Labs 11/15/20 09:43 Glucose 118 H Assessment and Plan 65 yo male with htn, presenting with acute onset of right arm weakness w/ dysphasia with the initial NCHCT revealing a left frontal ischemic stroke. 1. Acute Ischemic (Artery to Artery) Embolic Stroke - ASpirin 325 mg PO day or ASA 300 mg MS qday statin therapy for a goal LDL of 70; confirm A1c, LDL, TSH- T4, TTE, pt/ot/st evaluation/monitoring, telemetry. 2. LICA Stenosis - recommend transfer for cerebral angiography to confirm/deny if the distal LICA is amenable to stenting or not. 3. Hypertension - sbp 160-200 mmHg / dbp 80-100 mmHg. 4. Expressive Dysphasia - st evaluation/monitoring w/ swallow evaluation. 5. Right arm weakness - pt/ot evaluation/monitoring. Truong Sotomayor MD Neurology
--- NOTE | 2020-11-17 15:38 | Progress Note ---
Assessment and Plan Assessment and plan: 65 YO Male with Obesity Hypoventilation Syndrome, HTN presents to ED for evaluation. Patient is aphasic and is unable to provide history. Patient history is provided by the patient's . As per the patient was in his usual state of health at approximately 0830 hrs. this morning. The patient was subsequently found to have right sided weakness and difficulty speaking. EMS was notified and upon arrival the patient was found to be in distress with a focal neurologic deficit. A code stroke was called and the patient was transported to [facility] for further care and evaluation of the aforementioned symptoms. The patient was seen and evaluated in the emergency department. All lab and imaging studies reviewed. The patient was found to have clinical symptoms consistent with CVA. The patient was placed in observation status and admitted to medical floor and initiated on CVA protocol. The patient was also found to have accelerated hypertension. No reports of fever, chills, chest pain, palpitation, productive cough, skin rash, recent ill contacts, or known exposure to COVID-19. No prior admission for review. No medication listed at time of admission for reconciliation. The patient is aphasic but has a positive gag reflex and is able to protect his airway without difficulty. Advanced care planning conducted in ED. Teleneurology consult placed in ED. As per neurology, patient was started on aspirin and loaded with Plavix. CT head performed showed left frontal lobe infarcts. CTA head and neck showed no significant stenosis. Patient has been started on statins. 11/16. Patient remains aphasic. Reportedly passed a swallow evaluation. MRI brain has been ordered. PT/OT pending. 11/17. MRI brain showed nonhemorrhagic CVA in the left cerebral hemisphere. PT recommending rehab-discussed with manager of case. Needs a COVID-19 test. Assessment and Plan - Patient Problems (1) CVA (cerebral vascular accident) Current Visit: Yes Status: Acute Qualifiers: CVA mechanism: unspecified Qualified Code(s): I63.9 - Cerebral infarction, unspecified Plan to address problem: CT head showed left frontal lobe infarct. CTA head and neck-negative significant stenosis MRI brain without contrast-left subacute CVA Echocardiogram-no PFO/shunt or probe Neurology evaluation pending Continue Plavix and statins PT/OT ordered-PT recommends rehab Continue speech therapy (2) Right hemiparesis Current Visit: Yes Status: Acute Plan to address problem: Physical therapy recommends rehab (3) Obesity hypoventilation syndrome Current Visit: Yes Status: Acute Plan to address problem: Balanced diet, increase physical activity at discharge, outpatient pulmonary follow-up for sleep study. Noninvasive positive pressure ventilation as clinically indicated. (4) Uncontrolled hypertension Current Visit: Yes Status: Acute Plan to address problem: Resume blood pressure medication (5) DVT prophylaxis Current Visit: Yes Status: Acute Plan to address problem: SCD to bilateral lower extremities while in bed, prophylactic anticoagulation (6) Advance care planning Current Visit: Yes Status: Acute Plan to address problem: Needs placement Needs a Covid test History Interval history: His dysphagia is better today MRI brain confirmed left subacute stroke Neurology consulted Physical therapy recommending rehab. Discussed with manager of case Hospitalist Physical - Physical exam Narrative exam: VITAL SIGNS: Reviewed. GENERAL: Awake HEAD: No signs of head trauma. EYES: Pupils are equal. Extraocular motions intact. MOUTH: Oropharynx is normal. NECK: No adenopathy, no JVD. CHEST: Chest with diminished breath sounds bilaterally. No wheezes, rales, or rhonchi. CARDIAC: normal S1 and S2, without murmurs, gallops, or rubs. ABDOMEN: Soft, non tender and non distended. No rebound or guarding, and no masses palpated. Bowel Sounds normal. MUSCULOSKELETAL: No edema NEUROLOGIC EXAM: Alert and oriented x3. Has dysphasia SKIN: No obvious lesions - Constitutional Vitals: Temp Pulse Resp BP Pulse Ox 97.4 F L 84 18 178/67 94 11/17/20 11:00 11/17/20 11:00 11/17/20 11:00 11/17/20 11:00 11/17/20 06:19 HEART Score - HEART Score Troponin: Troponin T < 0.010 ng/mL (0.00-0.029) 11/15/20 09:43 Results - Labs CBC & Chem 7: 11/15/20 09:43 11/15/20 09:43 Labs: Laboratory Last Values WBC 7.3 K/mm3 (4.5-11.0) 11/15/20 09:43 RBC 4.78 M/mm3 (3.65-5.03) 11/15/20 09:43 Hgb 14.6 gm/dl (11.8-15.2) 11/15/20 09:43 Hct 42.8 % (35.5-45.6) 11/15/20 09:43 MCV 89 fl (84-94) 11/15/20 09:43 MCH 30 pg (28-32) 11/15/20 09:43 MCHC 34 % (32-34) 11/15/20 09:43 RDW 13.5 % (13.2-15.2) 11/15/20 09:43 Plt Count 232 K/mm3 (140-440) 11/15/20 09:43 Lymph % (Auto) 24.3 % (13.4-35.0) 11/15/20 09:43 [place] % (Auto) 4.9 % (0.0-7.3) 11/15/20 09:43 Eos % (Auto) 3.1 % (0.0-4.3) 11/15/20 09:43 Baso % (Auto) 0.6 % (0.0-1.8) 11/15/20 09:43 Lymph # (Auto) 1.8 K/mm3 (1.2-5.4) 11/15/20 09:43 [place] # (Auto) 0.4 K/mm3 (0.0-0.8) 11/15/20 09:43 Eos # (Auto) 0.2 K/mm3 (0.0-0.4) 11/15/20 09:43 Baso # (Auto) 0.0 K/mm3 (0.0-0.1) 11/15/20 09:43 Seg Neutrophils % 67.1 % (40.0-70.0) 11/15/20 09:43 Seg Neutrophils # 4.9 K/mm3 (1.8-7.7) 11/15/20 09:43 PT 12.7 Sec. (12.2-14.9) 11/15/20 09:43 INR 0.96 (0.87-1.13) 11/15/20 09:43 APTT 30.4 Sec. (24.2-36.6) 11/15/20 09:43 Thrombin Time 16.9 Sec. (15.1-19.6) 11/15/20 09:43 Sodium 141 mmol/L (137-145) 11/15/20 09:43 Potassium 3.8 mmol/L (3.6-5.0) 11/15/20 09:43 Chloride 105.7 mmol/L (98-107) 11/15/20 09:43 Carbon Dioxide 22 mmol/L (22-30) 11/15/20 09:43 Anion Gap 17 mmol/L 11/15/20 09:43 BUN 13 mg/dL (9-20) 11/15/20 09:43 Creatinine 0.9 mg/dL (0.8-1.3) 11/15/20 09:43 Estimated GFR > 60 ml/min 11/15/20 09:43 BUN/Creatinine Ratio 14 % 11/15/20 09:43 Glucose 118 mg/dL (75-100) H 11/15/20 09:43 POC Glucose 102 mg/dL (70-105) 11/16/20 21:31 Calcium 9.5 mg/dL (8.4-10.2) 11/15/20 09:43 Magnesium 2.00 mg/dL (1.7-2.3) 11/15/20 09:43 Total Bilirubin 0.60 mg/dL (0.1-1.2) 11/15/20 09:43 Direct Bilirubin < 0.2 mg/dL (0-0.2) 11/15/20 09:43 Indirect Bilirubin 0.4 mg/dL 11/15/20 09:43 AST 27 units/L (5-40) 11/15/20 09:43 ALT 21 units/L (7-56) 11/15/20 09:43 Alkaline Phosphatase 59 units/L (35-129) 11/15/20 09:43 Troponin T < 0.010 ng/mL (0.00-0.029) 11/15/20 09:43 NT-Pro-B Natriuret Pep 240.5 pg/mL (0-900) 11/15/20 09:43 Total Protein 8.1 g/dL (6.3-8.2) 11/15/20 09:43 Albumin 4.4 g/dL (3.9-5) 11/15/20 09:43 Albumin/Globulin Ratio 1.2 % 11/15/20 09:43 Triglycerides 101 mg/dL (2-149) 11/16/20 05:52 Cholesterol 176 mg/dL (50-199) 11/16/20 05:52 LDL Cholesterol Direct 123 mg/dL (50-130) 11/16/20 05:52 HDL Cholesterol 45 mg/dL (40-59) 11/16/20 05:52 Cholesterol/HDL Ratio 3.91 % 11/16/20 05:52 - Diagnostic Impressions Diagnostic Impressions: Echocardiogram 11/15/20 13:22 Transthoracic Echocardiogram Indication: Stroke BP: 162/89 HR: 80 Conclusions *The left ventricular chamber size is normal. *Mild concentric left ventricular hypertrophy is observed. *Global left ventricular wall motion and contractility are within normal limits. *The estimated ejection fraction is 60-65%. *There is an E to A reversal in the mitral valve flow pattern suggestive of diastolic dysfunction. *There is trace of aortic regurgitation. *No evidence of right to left shunt documented on saline contrast injetion. * * Findings Left Ventricle: The left ventricular chamber size is normal. Mild concentric left ventricular hypertrophy is observed. Global left ventricular wall motion and contractility are within normal limits. Global left ventricular systolic function is normal. The estimated ejection fraction is 60-65%. There is an E to A reversal in the mitral valve flow pattern suggestive of diastolic dysfunction. Left Atrium: The left atrial chamber size is normal. Right Ventricle: The right ventricular cavity size is normal. The right ventricular global systolic function is normal. Right Atrium: The right atrial cavity size is normal. Aortic Valve: Mild aortic leaflet calcification is visualized. There is trace of aortic regurgitation. Mitral Valve: Mild mitral leaflet calcification is visualized. There is trace of mitral regurgitation. Tricuspid Valve: The tricuspid valve leaflets are normal. There is trace tricuspid regurgitation. The right ventricular systolic pressure is calculated at 24 mmHg. Pulmonic Valve: There is no evidence of pulmonic valve thickening. There is trace pulmonic regurgitation. Pericardium: There is no pericardial effusion. Aorta: The aorta appears normal. Venous: The inferior vena cava is not visualized. Contrast: Intravenous agitated saline contrast was used to assess intracardiac shunting. No evidence of right to left shunt documented on saline contrast injetion. Measurements Chambers 2D Name Value Normal Range IVSd (2D) 1.28 cm (0.6 - 1.1) LVPWd (2D) 1.34 cm (0.6 - 1.1) LVIDd (2D) 4.01 cm (3.7 - 5.6) LVIDs (2D) 2.59 cm (2 - 3.8) LV FS (2D) 35.4 % - EF Teichholz (2D) 65.37 % - Ao root diameter (2D) 3.62 cm (2 - 3.7) Volumes/Mass Name Value Normal Range LA ESV SP 4CH (A/L) 48.59 ml - LA ESV SP 2CH (A/L) 47.06 ml - LA ESV BP (A/L) 52.22 ml - LA ESV BP (A/L) index 23.42 ml/m2 - LA ESV SP 4CH (MOD) 45.66 ml - LA ESV SP 2CH (MOD) 43.58 ml - LA ESV BP (MOD) 48.67 ml - LA ESV BP (MOD) index 21.82 ml/m2 - Diastolic/Systolic Function Name Value Normal Range MV E-wave Vmax 0.6 m/sec - MV deceleration time 291.01 msec - MV A-wave Vmax 0.97 m/sec - MV E:A ratio 0.62 ratio - Aortic Valve Name Value Normal Range AV Vmax 1.31 m/sec - AV VTI 25.9 cm - AV peak gradient 6.87 mmHg - AV mean gradient 3.97 mmHg - LVOT diameter 2.05 cm - LVOT Vmax 1.17 m/sec - LVOT VTI 23.73 cm - LVOT peak gradient 5.43 mmHg - LVOT mean gradient 2.68 mmHg - SV LVOT 78.65 ml - EMMETT (continuity Vmax) 2.95 cm2 - EMMETT (continuity VTI) 3.04 cm2 - AR PHT 606.05 msec - AR peak gradient 23.66 mmHg - Ascending Ao 3.33 cm - Tricuspid Valve Name Value Normal Range TR Vmax 1.97 m/sec - TR peak gradient 16 mmHg - RAP 8 mmHg - RVSP 24 mmHg - Pulmonic Valve/Qp:Qs Name Value Normal Range PV Vmax 0.88 m/sec - PV peak gradient 3.09 mmHg - MA end-diastolic Vmax 0.88 m/sec - PV acceleration time 110.37 msec - Dominique/IV: Voiding Method Condom Catheter IV Catheter Type [Right INT / Saline Lock Antecubital] IV Catheter Type [Right INT / Saline Lock External Jugular] Active Medications - Current Medications Current Medications: Generic Name Dose Route Start Last Admin Trade Name Freq PRN Reason Stop Dose Admin Acetaminophen 650 mg 11/15/20 13:20 Acetaminophen 325 Mg Tab PO Q4H PRN Pain, Mild (1-3) Amlodipine Besylate 10 mg 11/17/20 06:00 11/17/20 10:47 Amlodipine 10 Mg Tab PO 10 mg QDAY DARSHAN Administration Atorvastatin Calcium 80 mg 11/16/20 22:00 11/16/20 22:06 Atorvastatin 40 Mg Tab PO 80 mg QHS DARSHAN Administration Bisacodyl 10 mg 11/15/20 13:20 Bisacodyl 10 Mg Rect Supp MA QDAY PRN Constipation Clopidogrel Bisulfate 75 mg 11/16/20 10:00 11/17/20 10:47 Clopidogrel 75 Mg Tab PO 75 mg QDAY DARSHAN Administration Labetalol HCl 10 mg 11/16/20 18:34 11/16/20 18:42 Labetalol 20 Mg/4 Ml Inj IV 10 mg Q8HR PRN Administration Blood Pressure Magnesium Hydroxide 30 ml 11/15/20 13:20 Magnesium Hydroxide (Mom) Oral Liqd Udc PO Q4H PRN Constipation Metoclopramide HCl 10 mg 11/15/20 13:20 Metoclopramide 10 Mg Tab PO Q6H PRN Nausea And Vomiting Ondansetron HCl 4 mg 11/15/20 13:20 Ondansetron 4 Mg/2 Ml Inj IV Q8H PRN Nausea And Vomiting Promethazine HCl 25 mg 11/15/20 13:20 Promethazine 25 Mg Rect Supp MA Q6H PRN Nausea And Vomiting Sodium Chloride 10 ml 11/15/20 13:20 Sodium Chloride 0.9% 10 Ml Flush Syringe IV PRN PRN LINE FLUSH
[2020-11-17] MEDS: VALSARTAN 160MG TAB PO SCH (16:52)
[2020-11-18] MEDS: VALSARTAN 160MG TAB PO SCH (09:45)
[2020-11-18] MEDS: amLODIPine 10 MG TAB PO SCH (09:46)
[2020-11-18] MEDS: CLOPIDOGREL 75 MG TAB PO SCH (09:47)
--- NOTE | 2020-11-18 10:24 | Event Note ---
Date: 11/18/20 Patient ok to admit to IRU AFTER Carotid Duplex is complete. It was ordered on 11/15 as part of CVA workup. COVID-19 test is pending, if POSITIVE can admit to rehab on COVID floor. Please call with any questions.
--- NOTE | 2020-11-18 12:24 | Discharge Summary ---
Providers - Providers Date of Admission: 11/17/20 08:22 Date of discharge: 11/18/20 Attending physician: MANJIT HERNANDEZ 11/15/20 13:20 Consult to Case Management [CONS] Routine Services Needed at Discharge: Other Notified:: upon arrival to floor Additional Physician Instructions: discharge planning Occupational Therapy Evaluate and Treat [CONS] Routine Comment: Reason For Exam: Neuro deficits Physical Therapy Evaluation and Treat [CONS] Routine Comment: Reason For Exam: Neuro deficits 11/15/20 13:21 Speech Therapy Evaluation and Treat [CONS] Routine Reason For Exam: swallow eval 11/16/20 07:36 Consult to Physician [CONS] Routine Comment: Consulting Provider: AARON JULIAN Physician Instructions: Reason For Exam: CVA 11/18/20 09:03 Speech Therapy Evaluation and Treat [CONS] Routine Reason For Exam: Speech Impairment. Order deleted by mistake Primary care physician: ANNABELLE MEHTA Hospitalization Condition: Stable Hospital course: 65 YO Male with Obesity Hypoventilation Syndrome, HTN presents to ED for evaluation. Patient is aphasic and is unable to provide history. Patient history is provided by the patient's . As per the patient was in his usual state of health at approximately 0830 hrs. this morning. The patient was subsequently found to have right sided weakness and difficulty speaking. EMS was notified and upon arrival the patient was found to be in distress with a focal neurologic deficit. A code stroke was called and the patient was transported to [facility] for further care and evaluation of the aforementioned symptoms. The patient was seen and evaluated in the emergency department. All lab and imaging studies reviewed. The patient was found to have clinical sym ptoms consistent with CVA. The patient was placed in observation status and admitted to medical floor and initiated on CVA protocol. The patient was also found to have accelerated hypertension. No reports of fever, chills, chest pain, palpitation, productive cough, skin rash, recent ill contacts, or known exposure to COVID-19. No prior admission for review. No medication listed at time of admission for reconciliation. The patient is aphasic but has a positive gag reflex and is able to protect his airway without difficulty. Advanced care planning conducted in ED. Teleneurology consult placed in ED. As per neurology, patient was started on aspirin and loaded with Plavix. CT head performed showed left frontal lobe infarcts. CTA head and neck showed no significant stenosis. Patient has been started on statins. 11/16. Patient remains aphasic. Reportedly passed a swallow evaluation. MRI brain has been ordered. PT/OT pending. 11/17. MRI brain showed nonhemorrhagic CVA in the left cerebral hemisphere. PT recommending rehab-discussed with caseworker protective services. Needs a COVID-19 test. 11/18. Patient's Covid test is negative. Patient has been accepted at rehab. However as per neurology, patient will need to be transferred for evaluation of distal LICA stenosis. Initiated transfer to [place] for evaluation. Discussed with neurologist Dr Rodas at [place]. Plan is to send images to her for review. Informed front office assistant to arrange image to be sent [place]. 11/19. Neurologist at [place] has reviewed images and he discussed with vascular surgery in the hospital for further evaluation. Neurologist will call me back with recommendations. No recommendations at this time 11/20. Discussed with Dr Rodas from [place]. Vascular team at [place] recommends medical management now with vascular surgery and neurology follow up. Patient will be discharged on aspirin and statins. He will need a vascular surgery and neurology follow up. I have discussed the plan with patient and his daughter (Cyndee). He will be going to rehab where he will continue physical therapy and speech therapy. Patient and family agree with plan. Disposition: [id number] INPT REHAB FACILITY Time spent for discharge: 40 minutes - Discharge Diagnoses (1) CVA (cerebral vascular accident) Status: Acute Qualifiers: CVA mechanism: unspecified Qualified Code(s): I63.9 - Cerebral infarction, unspecified (2) Right hemiparesis Status: Acute (3) Uncontrolled hypertension Status: Acute Core Measure Documentation - Palliative Care Palliative Care/ Comfort Measures: Not Applicable - Core Measures Any of the following diagnoses?: none Exam - Physical Exam Narrative exam: VITAL SIGNS: Reviewed. GENERAL: Awake HEAD: No signs of head trauma. EYES: Pupils are equal. Extraocular motions intact. MOUTH: Oropharynx is normal. NECK: No adenopathy, no JVD. CHEST: Chest with diminished breath sounds bilaterally. No wheezes, rales, or rhonchi. CARDIAC: normal S1 and S2, without murmurs, gallops, or rubs. ABDOMEN: Soft, non tender and non distended. No rebound or guarding, and no masses palpated. Bowel Sounds normal. MUSCULOSKELETAL: No edema NEUROLOGIC EXAM: Alert and oriented x3. Has expressive dysphasia. Right sided weakness is better SKIN: No obvious lesions - Constitutional Vitals: Temp Pulse Resp BP Pulse Ox 98.9 F 87 20 144/73 96 11/18/20 05:33 11/18/20 09:46 11/18/20 05:33 11/18/20 09:46 11/18/20 05:33 Plan Activity: no restrictions Diet: low fat, low cholesterol, low salt Additional Instructions: Follow up with neurology and vascular surgery in the office in1-2 weeks. You will need to have close monitoring of your left carotids with serial ultrasounds. Continue medications as prescribed until you are advised to stop. Follow up with: ANNABELLE MEHTA MD [Primary Care Provider] - 3-5 Days KALIN MCNALLY MD [Staff Physician] - 7 Days BAIRON JACKSON MD [Referring] - 7 Days Prescriptions: AtorvaSTATin [Lipitor] 80 mg PO QHS #60 tablet amLODIPine 10 mg PO QDAY #30 tablet Aspirin 325 mg PO QDAY #30 tablet Valsartan [Diovan] 160 mg PO DAILY #30 tablet
--- NOTE | 2020-11-18 13:26 | Vascular Lab Report ---
"DUPLEX DOPPLER ULTRASOUND CAROTID, BILATERAL INDICATION: stroke. FINDINGS: RIGHT CAROTID: No significant atherosclerotic plaque. Right ICA peak systolic velocity: 92 cm/sec. Right Vertebral Artery: Antegrade flow. LEFT CAROTID: No significant atherosclerotic plaque. Left ICA peak systolic velocity: 49 cm/sec. Left Vertebral Artery: Antegrade flow. IMPRESSION: 1. Right Internal Carotid Artery: Less than 50% diameter stenosis. 2. Left Internal Carotid Artery: Less than 50% diameter stenosis. Velocity criteria are extrapolated from diameter data as defined by the Society of Radiologists in [facility] Consensus Conference, Radiology 2003; 229;340-346. Degree of Stenosis (%) || ICA PSV (cm/sec) || Plaque estimate (%) || ICA/CCA PSV Ratio Normal <125 None <2.0 <50 <125 <50 <2.0 50-69 125-230 50 2.0-4.0 70 but less than 100 >230 50 >4.0 Near occlusion High, low, or none visible variable Total occlusion None visible; no lumen N/A Signer Name: Franco Ochoa MD Signed: 11/18/2020 1:21 PM Workstation Name: [id number]
[2020-11-19] MEDS: CLOPIDOGREL 75 MG TAB PO SCH (10:28)
[2020-11-19] MEDS: VALSARTAN 160MG TAB PO SCH (10:28)
[2020-11-19] MEDS: amLODIPine 10 MG TAB PO SCH (10:28)
--- NOTE | 2020-11-20 07:29 | Progress Note ---
Assessment and Plan Assessment and plan: 65 YO Male with Obesity Hypoventilation Syndrome, HTN presents to ED for evaluation. Patient is aphasic and is unable to provide history. Patient history is provided by the patient's . As per the patient was in his usual state of health at approximately 0830 hrs. this morning. The patient was subsequently found to have right sided weakness and difficulty speaking. EMS was notified and upon arrival the patient was found to be in distress with a focal neurologic deficit. A code stroke was called and the patient was transported to [facility] for further care and evaluation of the aforementioned symptoms. The patient was seen and evaluated in the emergency department. All lab and imaging studies reviewed. The patient was found to have clinical symptoms consistent with CVA. The patient was placed in observation status and admitted to medical floor and initiated on CVA protocol. The patient was also found to have accelerated hypertension. No reports of fever, chills, chest pain, palpitation, productive cough, skin rash, recent ill contacts, or known exposure to COVID-19. No prior admission for review. No medication listed at time of admission for reconciliation. The patient is aphasic but has a positive gag reflex and is able to protect his airway without difficulty. Advanced care planning conducted in ED. Teleneurology consult placed in ED. As per neurology, patient was started on aspirin and loaded with Plavix. CT head performed showed left frontal lobe infarcts. CTA head and neck showed no significant stenosis. Patient has been started on statins. 11/16. Patient remains aphasic. Reportedly passed a swallow evaluation. MRI brain has been ordered. PT/OT pending. 11/17. MRI brain showed nonhemorrhagic CVA in the left cerebral hemisphere. PT recommending rehab-discussed with sample case porter. Needs a COVID-19 test. 11/18. Patient's Covid test is negative. Patient has been accepted at rehab. However as per neurology, patient will need to be transferred for evaluation of distal LICA stenosis. Initiated transfer to [facility] for evaluation. Discussed with neurologist Dr Rodas at [facility]. Plan is to send images to her for review. Informed help desk internship to arrange image to be sent [facility]. 11/19. Neurologist at [facility] has reviewed images and he discussed with vascular surgery in the hospital for further evaluation. Neurologist will call me back with recommendations. No recommendations at this time Assessment and Plan - Patient Problems (1) CVA (cerebral vascular accident) Current Visit: Yes Status: Acute Qualifiers: CVA mechanism: unspecified Qualified Code(s): I63.9 - Cerebral infarction, unspecified Plan to address problem: CT head showed left frontal lobe infarct. 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 As per neurology, patient will need to be evaluated for transfer to [facility]. Discussed with Dr. Rodas, she will discuss with vascular surgeons to see if there is any intervention needed at this point. Awaiting callback. MRI brain without contrast-left subacute CVA Echocardiogram-no PFO/shunt or probe Neurology evaluation pending Continue Plavix and statins PT/OT ordered-PT recommends rehab Continue speech therapy (2) Right hemiparesis Current Visit: Yes Status: Acute Plan to address problem: Physical therapy recommends rehab (3) Obesity hypoventilation syndrome Current Visit: Yes Status: Acute Plan to address problem: Balanced diet, increase physical activity at discharge, outpatient pulmonary follow-up for sleep study. Noninvasive positive pressure ventilation as clinically indicated. (4) Uncontrolled hypertension Current Visit: Yes Status: Acute Plan to address problem: Resume blood pressure medication (5) DVT prophylaxis Current Visit: Yes Status: Acute Plan to address problem: SCD to bilateral lower extremities while in bed, prophylactic anticoagulation (6) Advance care planning Current Visit: Yes Status: Acute Plan to address problem: Needs placement Needs a Covid test - Patient Problems (1) CVA (cerebral vascular accident) Current Visit: Yes Status: Acute Qualifiers: CVA mechanism: unspecified Qualified Code(s): I63.9 - Cerebral infarction, unspecified (2) Right hemiparesis Current Visit: Yes Status: Acute (3) Uncontrolled hypertension Current Visit: Yes Status: Acute History Interval history: [facility] to review MRI slides. Plan to dc to rehab vs transfer to [place] Hospitalist Physical - Physical exam Narrative exam: VITAL SIGNS: Reviewed. GENERAL: Awake HEAD: No signs of head trauma. EYES: Pupils are equal. Extraocular motions intact. MOUTH: Oropharynx is normal. NECK: No adenopathy, no JVD. CHEST: Chest with diminished breath sounds bilaterally. No wheezes, rales, or rhonchi. CARDIAC: normal S1 and S2, without murmurs, gallops, or rubs. ABDOMEN: Soft, non tender and non distended. No rebound or guarding, and no masses palpated. Bowel Sounds normal. MUSCULOSKELETAL: No edema NEUROLOGIC EXAM: Alert and oriented x3. Has dysphasia SKIN: No obvious lesions - Constitutional Vitals: Temp Pulse Resp BP Pulse Ox 97.7 F 91 H 18 140/82 99 11/20/20 04:18 11/20/20 04:18 11/20/20 04:18 11/20/20 04:18 11/20/20 04:18 HEART Score - HEART Score Troponin: Troponin T < 0.010 ng/mL (0.00-0.029) 11/15/20 09:43 Results - Labs CBC & Chem 7: 11/15/20 09:43 11/15/20 09:43 Labs: Laboratory Last Values WBC 7.3 K/mm3 (4.5-11.0) 11/15/20 09:43 RBC 4.78 M/mm3 (3.65-5.03) 11/15/20 09:43 Hgb 14.6 gm/dl (11.8-15.2) 11/15/20 09:43 Hct 42.8 % (35.5-45.6) 11/15/20 09:43 MCV 89 fl (84-94) 11/15/20 09:43 MCH 30 pg (28-32) 11/15/20 09:43 MCHC 34 % (32-34) 11/15/20 09:43 RDW 13.5 % (13.2-15.2) 11/15/20 09:43 Plt Count 232 K/mm3 (140-440) 11/15/20 09:43 Lymph % (Auto) 24.3 % (13.4-35.0) 11/15/20 09:43 [place] % (Auto) 4.9 % (0.0-7.3) 11/15/20 09:43 Eos % (Auto) 3.1 % (0.0-4.3) 11/15/20 09:43 Baso % (Auto) 0.6 % (0.0-1.8) 11/15/20 09:43 Lymph # (Auto) 1.8 K/mm3 (1.2-5.4) 11/15/20 09:43 [place] # (Auto) 0.4 K/mm3 (0.0-0.8) 11/15/20 09:43 Eos # (Auto) 0.2 K/mm3 (0.0-0.4) 11/15/20 09:43 Baso # (Auto) 0.0 K/mm3 (0.0-0.1) 11/15/20 09:43 Seg Neutrophils % 67.1 % (40.0-70.0) 11/15/20 09:43 Seg Neutrophils # 4.9 K/mm3 (1.8-7.7) 11/15/20 09:43 PT 12.7 Sec. (12.2-14.9) 11/15/20 09:43 INR 0.96 (0.87-1.13) 11/15/20 09:43 APTT 30.4 Sec. (24.2-36.6) 11/15/20 09:43 Thrombin Time 16.9 Sec. (15.1-19.6) 11/15/20 09:43 Sodium 141 mmol/L (137-145) 11/15/20 09:43 Potassium 3.8 mmol/L (3.6-5.0) 11/15/20 09:43 Chloride 105.7 mmol/L (98-107) 11/15/20 09:43 Carbon Dioxide 22 mmol/L (22-30) 11/15/20 09:43 Anion Gap 17 mmol/L 11/15/20 09:43 BUN 13 mg/dL (9-20) 11/15/20 09:43 Creatinine 0.9 mg/dL (0.8-1.3) 11/15/20 09:43 Estimated GFR > 60 ml/min 11/15/20 09:43 BUN/Creatinine Ratio 14 % 11/15/20 09:43 Glucose 118 mg/dL (75-100) H 11/15/20 09:43 POC Glucose 96 mg/dL (70-105) 11/19/20 21:28 Calcium 9.5 mg/dL (8.4-10.2) 11/15/20 09:43 Magnesium 2.00 mg/dL (1.7-2.3) 11/15/20 09:43 Total Bilirubin 0.60 mg/dL (0.1-1.2) 11/15/20 09:43 Direct Bilirubin < 0.2 mg/dL (0-0.2) 11/15/20 09:43 Indirect Bilirubin 0.4 mg/dL 11/15/20 09:43 AST 27 units/L (5-40) 11/15/20 09:43 ALT 21 units/L (7-56) 11/15/20 09:43 Alkaline Phosphatase 59 units/L (35-129) 11/15/20 09:43 Troponin T < 0.010 ng/mL (0.00-0.029) 11/15/20 09:43 NT-Pro-B Natriuret Pep 240.5 pg/mL (0-900) 11/15/20 09:43 Total Protein 8.1 g/dL (6.3-8.2) 11/15/20 09:43 Albumin 4.4 g/dL (3.9-5) 11/15/20 09:43 Albumin/Globulin Ratio 1.2 % 11/15/20 09:43 Triglycerides 101 mg/dL (2-149) 11/16/20 05:52 Cholesterol 176 mg/dL (50-199) 11/16/20 05:52 LDL Cholesterol Direct 123 mg/dL (50-130) 11/16/20 05:52 HDL Cholesterol 45 mg/dL (40-59) 11/16/20 05:52 Cholesterol/HDL Ratio 3.91 % 11/16/20 05:52 Coronavirus (PCR) Negative (Negative) 11/18/20 Unknown - Diagnostic Impressions Diagnostic Impressions: Echocardiogram 11/15/20 13:22 Transthoracic Echocardiogram Indication: Stroke BP: 162/89 HR: 80 Conclusions *The left ventricular chamber size is normal. *Mild concentric left ventricular hypertrophy is observed. *Global left ventricular wall motion and contractility are within normal limits. *The estimated ejection fraction is 60-65%. *There is an E to A reversal in the mitral valve flow pattern suggestive of diastolic dysfunction. *There is trace of aortic regurgitation. *No evidence of right to left shunt documented on saline contrast injetion. * * Findings Left Ventricle: The left ventricular chamber size is normal. Mild concentric left ventricular hypertrophy is observed. Global left ventricular wall motion and contractility are within normal limits. Global left ventricular systolic function is normal. The estimated ejection fraction is 60-65%. There is an E to A reversal in the mitral valve flow pattern suggestive of diastolic dysfunction. Left Atrium: The left atrial chamber size is normal. Right Ventricle: The right ventricular cavity size is normal. The right ventricular global systolic function is normal. Right Atrium: The right atrial cavity size is normal. Aortic Valve: Mild aortic leaflet calcification is visualized. There is trace of aortic regurgitation. Mitral Valve: Mild mitral leaflet calcification is visualized. There is trace of mitral regurgitation. Tricuspid Valve: The tricuspid valve leaflets are normal. There is trace tricuspid regurgitation. The right ventricular systolic pressure is calculated at 24 mmHg. Pulmonic Valve: There is no evidence of pulmonic valve thickening. There is trace pulmonic regurgitation. Pericardium: There is no pericardial effusion. Aorta: The aorta appears normal. Venous: The inferior vena cava is not visualized. Contrast: Intravenous agitated saline contrast was used to assess intracardiac shunting. No evidence of right to left shunt documented on saline contrast injetion. Measurements Chambers 2D Name Value Normal Range IVSd (2D) 1.28 cm (0.6 - 1.1) LVPWd (2D) 1.34 cm (0.6 - 1.1) LVIDd (2D) 4.01 cm (3.7 - 5.6) LVIDs (2D) 2.59 cm (2 - 3.8) LV FS (2D) 35.4 % - EF Teichholz (2D) 65.37 % - Ao root diameter (2D) 3.62 cm (2 - 3.7) Volumes/Mass Name Value Normal Range LA ESV SP 4CH (A/L) 48.59 ml - LA ESV SP 2CH (A/L) 47.06 ml - LA ESV BP (A/L) 52.22 ml - LA ESV BP (A/L) index 23.42 ml/m2 - LA ESV SP 4CH (MOD) 45.66 ml - LA ESV SP 2CH (MOD) 43.58 ml - LA ESV BP (MOD) 48.67 ml - LA ESV BP (MOD) index 21.82 ml/m2 - Diastolic/Systolic Function Name Value Normal Range MV E-wave Vmax 0.6 m/sec - MV deceleration time 291.01 msec - MV A-wave Vmax 0.97 m/sec - MV E:A ratio 0.62 ratio - Aortic Valve Name Value Normal Range AV Vmax 1.31 m/sec - AV VTI 25.9 cm - AV peak gradient 6.87 mmHg - AV mean gradient 3.97 mmHg - LVOT diameter 2.05 cm - LVOT Vmax 1.17 m/sec - LVOT VTI 23.73 cm - LVOT peak gradient 5.43 mmHg - LVOT mean gradient 2.68 mmHg - SV LVOT 78.65 ml - EMMETT (continuity Vmax) 2.95 cm2 - EMMETT (continuity VTI) 3.04 cm2 - AR PHT 606.05 msec - AR peak gradient 23.66 mmHg - Ascending Ao 3.33 cm - Tricuspid Valve Name Value Normal Range TR Vmax 1.97 m/sec - TR peak gradient 16 mmHg - RAP 8 mmHg - RVSP 24 mmHg - Pulmonic Valve/Qp:Qs Name Value Normal Range PV Vmax 0.88 m/sec - PV peak gradient 3.09 mmHg - AK end-diastolic Vmax 0.88 m/sec - PV acceleration time 110.37 msec - Dominique/IV: Voiding Method Toilet IV Catheter Type [Right INT / Saline Lock Antecubital] IV Catheter Type [Right INT / Saline Lock External Jugular] Active Medications - Current Medications Current Medications: Generic Name Dose Route Start Last Admin Trade Name Freq PRN Reason Stop Dose Admin Acetaminophen 650 mg 11/15/20 13:20 Acetaminophen 325 Mg Tab PO Q4H PRN Pain, Mild (1-3) Amlodipine Besylate 10 mg 11/17/20 06:00 11/19/20 10:28 Amlodipine 10 Mg Tab PO 10 mg QDAY DARSHAN Administration Atorvastatin Calcium 80 mg 11/16/20 22:00 11/19/20 21:50 Atorvastatin 40 Mg Tab PO 80 mg QHS DARSHAN Administration Bisacodyl 10 mg 11/15/20 13:20 Bisacodyl 10 Mg Rect Supp AK QDAY PRN Constipation Clopidogrel Bisulfate 75 mg 11/16/20 10:00 11/19/20 10:28 Clopidogrel 75 Mg Tab PO 75 mg QDAY DARSHAN Administration Labetalol HCl 10 mg 11/16/20 18:34 11/16/20 18:42 Labetalol 20 Mg/4 Ml Inj IV 10 mg Q8HR PRN Administration Blood Pressure Magnesium Hydroxide 30 ml 11/15/20 13:20 Magnesium Hydroxide (Mom) Oral Liqd Udc PO Q4H PRN Constipation Metoclopramide HCl 10 mg 11/15/20 13:20 Metoclopramide 10 Mg Tab PO Q6H PRN Nausea And Vomiting Ondansetron HCl 4 mg 11/15/20 13:20 Ondansetron 4 Mg/2 Ml Inj IV Q8H PRN Nausea And Vomiting Promethazine HCl 25 mg 11/15/20 13:20 Promethazine 25 Mg Rect Supp AK Q6H PRN Nausea And Vomiting Sodium Chloride 10 ml 11/15/20 13:20 Sodium Chloride 0.9% 10 Ml Flush Syringe IV PRN PRN LINE FLUSH Valsartan 160 mg 11/17/20 16:00 11/19/20 10:28 Valsartan 160mg Tab PO 160 mg DAILY DARSHAN Administration Nutrition/Malnutrition Assess - Dietary Evaluation Nutrition/Malnutrition Findings: Nutrition Notes Start: 11/19/20 10:48 Freq: Status: Active Protocol: Document 11/19/20 10:48 (Rec: 11/19/20 10:53 [id number]) Nutrition Notes Need for Assessment generated from: MD Order Initial or Follow up Brief Note Current Diagnosis Hypertension,Stroke Current Diet Cardiac Subjective/Other Information MD order for diet education. Per chart, pt has dysphaiga and passed swallow eval. Pt answered the phone but hung up once asked if he could answer some questions. Nutrition Intervention Follow-Up By: 11/26/20 Additional Comments FU for diet education
--- NOTE | 2020-11-20 07:31 | Progress Note ---
Assessment and Plan Assessment and plan: 65 YO Male with Obesity Hypoventilation Syndrome, HTN presents to ED for evaluation. Patient is aphasic and is unable to provide history. Patient history is provided by the patient's . As per the patient was in his usual state of health at approximately 0830 hrs. this morning. The patient was subsequently found to have right sided weakness and difficulty speaking. EMS was notified and upon arrival the patient was found to be in distress with a focal neurologic deficit. A code stroke was called and the patient was transported to [facility] for further care and evaluation of the aforementioned symptoms. The patient was seen and evaluated in the emergency department. All lab and imaging studies reviewed. The patient was found to have clinical symptoms consistent with CVA. The patient was placed in observation status and admitted to medical floor and initiated on CVA protocol. The patient was also found to have accelerated hypertension. No reports of fever, chills, chest pain, palpitation, productive cough, skin rash, recent ill contacts, or known exposure to COVID-19. No prior admission for review. No medication listed at time of admission for reconciliation. The patient is aphasic but has a positive gag reflex and is able to protect his airway without difficulty. Advanced care planning conducted in ED. Teleneurology consult placed in ED. As per neurology, patient was started on aspirin and loaded with Plavix. CT head performed showed left frontal lobe infarcts. CTA head and neck showed no significant stenosis. Patient has been started on statins. 11/16. Patient remains aphasic. Reportedly passed a swallow evaluation. MRI brain has been ordered. PT/OT pending. 11/17. MRI brain showed nonhemorrhagic CVA in the left cerebral hemisphere. PT recommending rehab-discussed with classification case manager. Needs a COVID-19 test. 11/18. Patient's Covid test is negative. Patient has been accepted at rehab. However as per neurology, patient will need to be transferred for evaluation of distal LICA stenosis. Initiated transfer to [facility] for evaluation. Discussed with neurologist Dr Rodas at [facility]. Plan is to send images to her for review. Informed desktop support manager to arrange image to be sent [facility]. Assessment and Plan - Patient Problems (1) CVA (cerebral vascular accident) Current Visit: Yes Status: Acute Qualifiers: CVA mechanism: unspecified Qualified Code(s): I63.9 - Cerebral infarction, unspecified Plan to address problem: CT head showed left frontal lobe infarct. 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 As per neurology, patient will need to be evaluated for transfer to [facility]. Discussed with Dr. Rodas, She is requesting for slides to review. Slides will be sent via push image MRI brain without contrast-left subacute CVA Echocardiogram-no PFO/shunt or probe Neurology evaluation appreciated Continue Plavix and statins PT/OT ordered-PT recommends rehab Continue speech therapy (2) Right hemiparesis Current Visit: Yes Status: Acute Plan to address problem: Physical therapy recommends rehab (3) Obesity hypoventilation syndrome Current Visit: Yes Status: Acute Plan to address problem: Balanced diet, increase physical activity at discharge, outpatient pulmonary follow-up for sleep study. Noninvasive positive pressure ventilation as clinically indicated. (4) Uncontrolled hypertension Current Visit: Yes Status: Acute Plan to address problem: Resume blood pressure medication (5) DVT prophylaxis Current Visit: Yes Status: Acute Plan to address problem: SCD to bilateral lower extremities while in bed, prophylactic anticoagulation (6) Advance care planning Current Visit: Yes Status: Acute Plan to address problem: Needs placement Needs a Covid test - Patient Problems (1) CVA (cerebral vascular accident) Current Visit: Yes Status: Acute Qualifiers: CVA mechanism: unspecified Qualified Code(s): I63.9 - Cerebral infarction, unspecified (2) Right hemiparesis Current Visit: Yes Status: Acute (3) Uncontrolled hypertension Current Visit: Yes Status: Acute History Interval history: [facility] to review MRI slides. Plan to dc to rehab vs transfer to [facility] Physical - Physical exam Narrative exam: VITAL SIGNS: Reviewed. GENERAL: Awake HEAD: No signs of head trauma. EYES: Pupils are equal. Extraocular motions intact. MOUTH: Oropharynx is normal. NECK: No adenopathy, no JVD. CHEST: Chest with diminished breath sounds bilaterally. No wheezes, rales, or rhonchi. CARDIAC: normal S1 and S2, without murmurs, gallops, or rubs. ABDOMEN: Soft, non tender and non distended. No rebound or guarding, and no masses palpated. Bowel Sounds normal. MUSCULOSKELETAL: No edema NEUROLOGIC EXAM: Alert and oriented x3. Has dysphasia SKIN: No obvious lesions - Constitutional Vitals: Temp Pulse Resp BP Pulse Ox 97.7 F 91 H 18 140/82 99 11/20/20 04:18 11/20/20 04:18 11/20/20 04:18 11/20/20 04:18 11/20/20 04:18 HEART Score - HEART Score Troponin: Troponin T < 0.010 ng/mL (0.00-0.029) 11/15/20 09:43 Results - Labs CBC & Chem 7: 11/15/20 09:43 11/15/20 09:43 Labs: Laboratory Last Values WBC 7.3 K/mm3 (4.5-11.0) 11/15/20 09:43 RBC 4.78 M/mm3 (3.65-5.03) 11/15/20 09:43 Hgb 14.6 gm/dl (11.8-15.2) 11/15/20 09:43 Hct 42.8 % (35.5-45.6) 11/15/20 09:43 MCV 89 fl (84-94) 11/15/20 09:43 MCH 30 pg (28-32) 11/15/20 09:43 MCHC 34 % (32-34) 11/15/20 09:43 RDW 13.5 % (13.2-15.2) 11/15/20 09:43 Plt Count 232 K/mm3 (140-440) 11/15/20 09:43 Lymph % (Auto) 24.3 % (13.4-35.0) 11/15/20 09:43 [place] % (Auto) 4.9 % (0.0-7.3) 11/15/20 09:43 Eos % (Auto) 3.1 % (0.0-4.3) 11/15/20 09:43 Baso % (Auto) 0.6 % (0.0-1.8) 11/15/20 09:43 Lymph # (Auto) 1.8 K/mm3 (1.2-5.4) 11/15/20 09:43 [place] # (Auto) 0.4 K/mm3 (0.0-0.8) 11/15/20 09:43 Eos # (Auto) 0.2 K/mm3 (0.0-0.4) 11/15/20 09:43 Baso # (Auto) 0.0 K/mm3 (0.0-0.1) 11/15/20 09:43 Seg Neutrophils % 67.1 % (40.0-70.0) 11/15/20 09:43 Seg Neutrophils # 4.9 K/mm3 (1.8-7.7) 11/15/20 09:43 PT 12.7 Sec. (12.2-14.9) 11/15/20 09:43 INR 0.96 (0.87-1.13) 11/15/20 09:43 APTT 30.4 Sec. (24.2-36.6) 11/15/20 09:43 Thrombin Time 16.9 Sec. (15.1-19.6) 11/15/20 09:43 Sodium 141 mmol/L (137-145) 11/15/20 09:43 Potassium 3.8 mmol/L (3.6-5.0) 11/15/20 09:43 Chloride 105.7 mmol/L (98-107) 11/15/20 09:43 Carbon Dioxide 22 mmol/L (22-30) 11/15/20 09:43 Anion Gap 17 mmol/L 11/15/20 09:43 BUN 13 mg/dL (9-20) 11/15/20 09:43 Creatinine 0.9 mg/dL (0.8-1.3) 11/15/20 09:43 Estimated GFR > 60 ml/min 11/15/20 09:43 BUN/Creatinine Ratio 14 % 11/15/20 09:43 Glucose 118 mg/dL (75-100) H 11/15/20 09:43 POC Glucose 96 mg/dL (70-105) 11/19/20 21:28 Calcium 9.5 mg/dL (8.4-10.2) 11/15/20 09:43 Magnesium 2.00 mg/dL (1.7-2.3) 11/15/20 09:43 Total Bilirubin 0.60 mg/dL (0.1-1.2) 11/15/20 09:43 Direct Bilirubin < 0.2 mg/dL (0-0.2) 11/15/20 09:43 Indirect Bilirubin 0.4 mg/dL 11/15/20 09:43 AST 27 units/L (5-40) 11/15/20 09:43 ALT 21 units/L (7-56) 11/15/20 09:43 Alkaline Phosphatase 59 units/L (35-129) 11/15/20 09:43 Troponin T < 0.010 ng/mL (0.00-0.029) 11/15/20 09:43 NT-Pro-B Natriuret Pep 240.5 pg/mL (0-900) 11/15/20 09:43 Total Protein 8.1 g/dL (6.3-8.2) 11/15/20 09:43 Albumin 4.4 g/dL (3.9-5) 11/15/20 09:43 Albumin/Globulin Ratio 1.2 % 11/15/20 09:43 Triglycerides 101 mg/dL (2-149) 11/16/20 05:52 Cholesterol 176 mg/dL (50-199) 11/16/20 05:52 LDL Cholesterol Direct 123 mg/dL (50-130) 11/16/20 05:52 HDL Cholesterol 45 mg/dL (40-59) 11/16/20 05:52 Cholesterol/HDL Ratio 3.91 % 11/16/20 05:52 Coronavirus (PCR) Negative (Negative) 11/18/20 Unknown - Diagnostic Impressions Diagnostic Impressions: Echocardiogram 11/15/20 13:22 Transthoracic Echocardiogram Indication: Stroke BP: 162/89 HR: 80 Conclusions *The left ventricular chamber size is normal. *Mild concentric left ventricular hypertrophy is observed. *Global left ventricular wall motion and contractility are within normal limits. *The estimated ejection fraction is 60-65%. *There is an E to A reversal in the mitral valve flow pattern suggestive of diastolic dysfunction. *There is trace of aortic regurgitation. *No evidence of right to left shunt documented on saline contrast injetion. * * Findings Left Ventricle: The left ventricular chamber size is normal. Mild concentric left ventricular hypertrophy is observed. Global left ventricular wall motion and contractility are within normal limits. Global left ventricular systolic function is normal. The estimated ejection fraction is 60-65%. There is an E to A reversal in the mitral valve flow pattern suggestive of diastolic dysfunction. Left Atrium: The left atrial chamber size is normal. Right Ventricle: The right ventricular cavity size is normal. The right ventricular global systolic function is normal. Right Atrium: The right atrial cavity size is normal. Aortic Valve: Mild aortic leaflet calcification is visualized. There is trace of aortic regurgitation. Mitral Valve: Mild mitral leaflet calcification is visualized. There is trace of mitral regurgitation. Tricuspid Valve: The tricuspid valve leaflets are normal. There is trace tricuspid regurgitation. The right ventricular systolic pressure is calculated at 24 mmHg. Pulmonic Valve: There is no evidence of pulmonic valve thickening. There is trace pulmonic regurgitation. Pericardium: There is no pericardial effusion. Aorta: The aorta appears normal. Venous: The inferior vena cava is not visualized. Contrast: Intravenous agitated saline contrast was used to assess intracardiac shunting. No evidence of right to left shunt documented on saline contrast injetion. Measurements Chambers 2D Name Value Normal Range IVSd (2D) 1.28 cm (0.6 - 1.1) LVPWd (2D) 1.34 cm (0.6 - 1.1) LVIDd (2D) 4.01 cm (3.7 - 5.6) LVIDs (2D) 2.59 cm (2 - 3.8) LV FS (2D) 35.4 % - EF Teichholz (2D) 65.37 % - Ao root diameter (2D) 3.62 cm (2 - 3.7) Volumes/Mass Name Value Normal Range LA ESV SP 4CH (A/L) 48.59 ml - LA ESV SP 2CH (A/L) 47.06 ml - LA ESV BP (A/L) 52.22 ml - LA ESV BP (A/L) index 23.42 ml/m2 - LA ESV SP 4CH (MOD) 45.66 ml - LA ESV SP 2CH (MOD) 43.58 ml - LA ESV BP (MOD) 48.67 ml - LA ESV BP (MOD) index 21.82 ml/m2 - Diastolic/Systolic Function Name Value Normal Range MV E-wave Vmax 0.6 m/sec - MV deceleration time 291.01 msec - MV A-wave Vmax 0.97 m/sec - MV E:A ratio 0.62 ratio - Aortic Valve Name Value Normal Range AV Vmax 1.31 m/sec - AV VTI 25.9 cm - AV peak gradient 6.87 mmHg - AV mean gradient 3.97 mmHg - LVOT diameter 2.05 cm - LVOT Vmax 1.17 m/sec - LVOT VTI 23.73 cm - LVOT peak gradient 5.43 mmHg - LVOT mean gradient 2.68 mmHg - SV LVOT 78.65 ml - EMMETT (continuity Vmax) 2.95 cm2 - EMMETT (continuity VTI) 3.04 cm2 - AR PHT 606.05 msec - AR peak gradient 23.66 mmHg - Ascending Ao 3.33 cm - Tricuspid Valve Name Value Normal Range TR Vmax 1.97 m/sec - TR peak gradient 16 mmHg - RAP 8 mmHg - RVSP 24 mmHg - Pulmonic Valve/Qp:Qs Name Value Normal Range PV Vmax 0.88 m/sec - PV peak gradient 3.09 mmHg - OH end-diastolic Vmax 0.88 m/sec - PV acceleration time 110.37 msec - Dominique/IV: Voiding Method Toilet IV Catheter Type [Right INT / Saline Lock Antecubital] IV Catheter Type [Right INT / Saline Lock External Jugular] Active Medications - Current Medications Current Medications: Generic Name Dose Route Start Last Admin Trade Name Freq PRN Reason Stop Dose Admin Acetaminophen 650 mg 11/15/20 13:20 Acetaminophen 325 Mg Tab PO Q4H PRN Pain, Mild (1-3) Amlodipine Besylate 10 mg 11/17/20 06:00 11/19/20 10:28 Amlodipine 10 Mg Tab PO 10 mg QDAY DARSHAN Administration Atorvastatin Calcium 80 mg 11/16/20 22:00 11/19/20 21:50 Atorvastatin 40 Mg Tab PO 80 mg QHS DARSHAN Administration Bisacodyl 10 mg 11/15/20 13:20 Bisacodyl 10 Mg Rect Supp OH QDAY PRN Constipation Clopidogrel Bisulfate 75 mg 11/16/20 10:00 11/19/20 10:28 Clopidogrel 75 Mg Tab PO 75 mg QDAY DARSHAN Administration Labetalol HCl 10 mg 11/16/20 18:34 11/16/20 18:42 Labetalol 20 Mg/4 Ml Inj IV 10 mg Q8HR PRN Administration Blood Pressure Magnesium Hydroxide 30 ml 11/15/20 13:20 Magnesium Hydroxide (Mom) Oral Liqd Udc PO Q4H PRN Constipation Metoclopramide HCl 10 mg 11/15/20 13:20 Metoclopramide 10 Mg Tab PO Q6H PRN Nausea And Vomiting Ondansetron HCl 4 mg 11/15/20 13:20 Ondansetron 4 Mg/2 Ml Inj IV Q8H PRN Nausea And Vomiting Promethazine HCl 25 mg 11/15/20 13:20 Promethazine 25 Mg Rect Supp OH Q6H PRN Nausea And Vomiting Sodium Chloride 10 ml 11/15/20 13:20 Sodium Chloride 0.9% 10 Ml Flush Syringe IV PRN PRN LINE FLUSH Valsartan 160 mg 11/17/20 16:00 11/19/20 10:28 Valsartan 160mg Tab PO 160 mg DAILY DARSHAN Administration Nutrition/Malnutrition Assess - Dietary Evaluation Nutrition/Malnutrition Findings: Nutrition Notes Start: 11/19/20 10:48 Freq: Status: Active Protocol: Document 11/19/20 10:48 (Rec: 11/19/20 10:53 [id number]) Nutrition Notes Need for Assessment generated from: MD Order Initial or Follow up Brief Note Current Diagnosis Hypertension,Stroke Current Diet Cardiac Subjective/Other Information MD order for diet education. Per chart, pt has dysphaiga and passed swallow eval. Pt answered the phone but hung up once asked if he could answer some questions. Nutrition Intervention Follow-Up By: 11/26/20 Additional Comments FU for diet education
[2020-11-20] MEDS: amLODIPine 10 MG TAB PO SCH (10:14)
[2020-11-20] MEDS: VALSARTAN 160MG TAB PO SCH (10:14)
[2020-11-20] MEDS: CLOPIDOGREL 75 MG TAB PO SCH (10:14)
[2020-11-20 10:15] VITALS: BP 125/76
== END 2020-11-20 14:13 | disposition home or self-care (01) | DRG 65 ==
LOC: ED 08:48 → 3A 13:56 → OBSVTOIN 11-17 08:22
PROVIDERS: ADMIT Internal Medicine; ATTEND Internal Medicine
DX: I63.9 Cerebral infarction, unspecified (principal); G81.91 Hemiplegia, unspecified affecting right dominant side; E66.2 Morbid (severe) obesity with alveolar hypoventilation; Z20.828 Contact with and (suspected) exposure to other viral communicable diseases; I10 Essential (primary) hypertension; Z79.899 Other long term (current) drug therapy; Z68.39 Body mass index [BMI] 39.0-39.9, adult; R29.706 NIHSS score 6; Z82.49 Family history of ischemic heart disease and other diseases of the circulatory system
CPT/HCPCS: 36415; 70450; 70496; 70498; 70551; 71045; 80048; 80061; 80076; 82962; 83735; 83880; 84484; 85025; 85610; 85670; 85730; 90471; 93005; 93306; 93880; 96361; 96365; 96366; 96367; 96368; 96375; 96376; G0378; A9270-GY; G0515-GN; Q9967; U0003

== ENCOUNTER 2021-01-24 17:37 | Emergency (ER) | payer MEDICARE ==
--- NOTE | 2021-01-24 19:41 | Cat Scan Report ---
CT head/brain wo con INDICATION: headache, elevated BP, hx of CVA. TECHNIQUE: Routine CT head. All CT scans at this location are performed using CT dose reduction for A JERMAINE by means of automated exposure control. COMPARISON: MRI brain is 2820. FINDINGS: Intracranial: Encephalomalacia in left frontal lobe from remote infarction. Dutta-white matter differe ntiation is maintained. No intracranial hemorrhage. No extra axial collection. No hydrocephalus. No h erniation. Sinuses: Large right maxillary sinus mucosal retention cyst which is a common finding. Mucosal opacif ication of a right ethmoid air cell. Otherwise the paranasal sinuses and mastoid air cells are essent ially clear.. Orbits: Globes are intact. Calvarium: No acute fracture. IMPRESSION: 1. No acute intracranial abnormality. 2. Sequela of prior left remote frontal infarction. Signer Name: Ton Crandall MD Signed: 01/24/2021 7:36 PM Workstation Name: [id number]
--- NOTE | 2021-01-24 19:49 | Event Note ---
ED Screening Note ED Screening Note: Patient is a poor historian Presents for elevated blood pressure and headache He states he lives at home alone and has home health Patient appears slightly confused He denies any chest pain, shortness of breath, fever, cough, vision changes, numbness, weakness, leg swelling He does not know what medications he is on This initial assessment/diagnostic orders/clinical plan/treatment(s) is/are subject to change based on patients health status, clinical progression and re- assessment by fellow clinical providers in the ED. Further treatment and workup at subsequent clinical providers discretion. Patient/guardian urged not to elope from the ED as their condition may be serious if not clinically assessed and managed. Initial orders include: Labs, EKG, UA CT head completed prior to my examination with no acute process previous remote left frontal infarction
[2021-01-24 20:10] LABS: Bilirubin,Urine NEG (Negative); Blood,Urine NEG (Negative); Color,Urine Yellow (Yellow); Protein,Urine <15 mg/dL mg/dL (Negative); Urobilinogen,Urine < 2.0 mg/dL (<2.0); WBC,Urine < 1.0 /HPF (0.0-6.0)
[2021-01-24 20:23] LABS: Basophils # (Auto) 0.1 K/mm3 (0.0-0.1); Basophils % (Auto) 0.6 % (0.0-1.8); Eosinophils # (Auto) 1.1 K/mm3 (0.0-0.4); Eosinophils % (Auto) 9.8 % (0.0-4.3); Hematocrit 42.7 % (35.5-45.6); Hemoglobin 14.6 gm/dl (11.8-15.2); Lymphocytes # (Auto) 3.1 K/mm3 (1.2-5.4); Lymphocytes % (Auto) 28.1 % (13.4-35.0); Mean Corpuscular HGB Conc 34 % (32-34); Mean Corpuscular Volume 88 fl (84-94); Monocytes # (Auto) 0.7 K/mm3 (0.0-0.8); Monocytes % (Auto) 6.7 % (0.0-7.3); Platelet Count 240 K/mm3 (140-440); Red Blood Count 4.83 M/mm3 (3.65-5.03); Red Cell Distribution Width 14.4 % (13.2-15.2)
[2021-01-24 20:38] LABS: Alanine Aminotransferase 123 units/L (7-56); Albumin 4.4 g/dL (3.9-5); BUN/Creatinine Ratio 16; Blood Urea Nitrogen 16 mg/dL (9-20); Calcium 9.9 mg/dL (8.4-10.2); Hemolysis Index 5
--- NOTE | 2021-01-24 22:14 | Emergency Department Report ---
ED General Adult HPI - General Chief complaint: High BP Stated complaint: HIGH BP Time Seen by Provider: 01/24/21 18:37 Source: patient Mode of arrival: Ambulatory Limitations: No Limitations - History of Present Illness Initial comments: Patient is 65 years old male with history of hypertension. Patient presented to the ER stating that his blood pressure was high at home and he is complaining of headache. Patient stated that he is compliant with his medication. Patient denied any weakness, numbness or tingling sensation. No chest pain or shortness of breath. - Related Data Previous Rx's Medication Instructions Recorded Last Taken Type Aspirin EC [Ecotrin] 325 mg PO QDAY #30 tablet 11/26/20 Unknown Rx AtorvaSTATin [Lipitor] 80 mg PO QHS #60 tablet 11/26/20 Unknown Rx Valsartan [Diovan] 160 mg PO DAILY #30 tablet 11/26/20 Unknown Rx amLODIPine 10 mg PO QDAY #30 tablet 11/26/20 Unknown Rx hydroCHLOROthiazide [HCTZ] 12.5 mg PO QDAY #30 capsule 11/26/20 Unknown Rx Allergies Allergy/AdvReac Type Severity Reaction Status Date / Time No Known Allergies Allergy Verified 01/24/21 17:37 ED Review of Systems ROS: Stated complaint: HIGH BP Other details as noted in HPI Comment: All other systems reviewed and negative Constitutional: denies: chills, fever Respiratory: denies: cough, shortness of breath, SOB with exertion Cardiovascular: denies: chest pain, palpitations Gastrointestinal: denies: abdominal pain, nausea, vomiting, diarrhea Musculoskeletal: denies: back pain Neurological: headache. denies: weakness, numbness, paresthesias, confusion, abnormal gait ED Past Medical Hx - Past Medical History Hx Hypertension: Yes - Social History Smoking Status: Never Smoker Substance Use Type: None - Medications Home Medications: Home Medications Medication Instructions Recorded Confirmed Last Taken Type Aspirin EC [Ecotrin] 325 mg PO QDAY #30 tablet 11/26/20 Unknown Rx AtorvaSTATin [Lipitor] 80 mg PO QHS #60 tablet 11/26/20 Unknown Rx Valsartan [Diovan] 160 mg PO DAILY #30 tablet 11/26/20 Unknown Rx amLODIPine 10 mg PO QDAY #30 tablet 11/26/20 Unknown Rx hydroCHLOROthiazide [HCTZ] 12.5 mg PO QDAY #30 capsule 11/26/20 Unknown Rx ED Physical Exam - General Limitations: No Limitations General appearance: alert, in no apparent distress - Head Head exam: Present: atraumatic, normocephalic, normal inspection - Eye Eye exam: Present: normal appearance, PERRL - ENT ENT exam: Present: normal exam, normal orophraynx, mucous membranes moist - Neck Neck exam: Present: normal inspection. Absent: tenderness, meningismus - Respiratory Respiratory exam: Present: normal lung sounds bilaterally - Cardiovascular Cardiovascular Exam: Present: regular rate, normal rhythm, normal heart sounds - GI/Abdominal GI/Abdominal exam: Present: soft, normal bowel sounds. Absent: distended, tenderness, guarding, rebound, rigid, organomegaly, mass, bruit, hernia - Extremities Exam Extremities exam: Present: normal inspection, full ROM, normal capillary refill. Absent: pedal edema, calf tenderness - Back Exam Back exam: Present: normal inspection. Absent: CVA tenderness (R), CVA tenderness (L) - Neurological Exam Neurological exam: Present: alert, oriented X3, CN II-XII intact - Psychiatric Psychiatric exam: Present: normal mood - Skin Skin exam: Present: warm, intact, normal color ED Course Vital Signs 01/24/21 01/24/21 17:41 22:08 Temperature 98.8 F Pulse Rate 122 H 84 Respiratory 20 18 Rate Blood Pressure 175/90 Blood Pressure 158/91 [Left] O2 Sat by Pulse 98 97 Oximetry ED Medical Decision Making - Lab Data Result diagrams: 01/24/21 19:53 01/24/21 19:53 - EKG Data -: EKG Interpreted by Ut EKG shows normal: sinus rhythm Rate: normal - EKG Data Interpretation: no acute changes - Radiology Data Radiology results: report reviewed - Medical Decision Making Patient is 65 years old male with history of hypertension. Patient presented to the ER stating that his blood pressure was high at home and he is complaining of headache. Patient stated that he is compliant with his medication. Patient denied any weakness, numbness or tingling sensation. No chest pain or shortness of breath. Labs reviewed and is unremarkable. CT head is negative for acute finding. Patient advised to follow-up with his primary care physician in the next 2 to 3 days and to return to the ER if he develop any new symptoms. Critical care attestation.: If time is entered above; I have spent that time in minutes in the direct care of this critically ill patient, excluding procedure time. ED Disposition Clinical Impression: Acute headache, Malignant hypertension Disposition: DC-01 TO HOME OR SELFCARE Is pt being admited?: No Condition: Stable Instructions: Hypertension (ED), Managing Your Hypertension Referrals: PRIMARY CARE, [Primary Care Provider] - 3-5 Days
[2021-01-24 22:15] VITALS: BP 156/93
== END 2021-01-24 22:44 | disposition home or self-care (01) ==
LOC: ED 17:37
DX: R51.9 Headache, unspecified (principal); I10 Essential (primary) hypertension; Z79.899 Other long term (current) drug therapy
CPT/HCPCS: 36415; 70450; 80053; 81001; 84484; 85025; 93005

== ENCOUNTER 2021-01-25 10:38 | Emergency (ER) | payer MEDICARE ==
--- NOTE | 2021-01-25 11:17 | Emergency Department Report ---
HPI - General Time Seen by Provider: 01/25/21 11:00 - HPI HPI: This is a 65-year-old male who presents to the emergency department via EMS from home with a complaint of elevated blood pressure despite compliance with his blood pressure medications, which include valsartanHCTZ, and amlodipine. The patient was seen here yesterday with the same complaint of uncontrolled blood pressure and at that time he also had a complaint of a generalized headache. The patient had blood work and a CT scan of the head that all came back normal. 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 The patient follows with Dr. Petros Mehta. The patient says that he woke up this morning and took his blood pressure medications around 7 AM. He checked his blood pressure around 7:30 AM or so and says that he had a systolic of 190. At the time of my initial examination, when the patient presented to the emergency department this morning, his blood pressure is about 150/80. He denies any headache, vision change, chest pain, shortness of breath, lower extremity swelling or any physical complaints at this time. He denies any tobacco or illicit drug use. ED Past Medical Hx - Past Medical History Hx Hypertension: Yes - Social History Smoking Status: Never Smoker Substance Use Type: None - Medications Home Medications: Home Medications Medication Instructions Recorded Confirmed Last Taken Type Aspirin EC [Ecotrin] 325 mg PO QDAY #30 tablet 11/26/20 Unknown Rx AtorvaSTATin [Lipitor] 80 mg PO QHS #60 tablet 11/26/20 Unknown Rx Valsartan [Diovan] 160 mg PO DAILY #30 tablet 11/26/20 Unknown Rx amLODIPine 10 mg PO QDAY #30 tablet 11/26/20 Unknown Rx hydroCHLOROthiazide [HCTZ] 12.5 mg PO QDAY #30 capsule 11/26/20 Unknown Rx ED Review of Systems ROS: Stated complaint: HYPERTX Other details as noted in HPI Comment: All other systems reviewed and negative Constitutional: denies: chills, fever Eyes: denies: eye pain, vision change ENT: denies: ear pain, throat pain Respiratory: denies: cough, shortness of breath Cardiovascular: denies: chest pain, palpitations Gastrointestinal: denies: abdominal pain, vomiting Genitourinary: denies: dysuria, discharge Musculoskeletal: denies: back pain, arthralgia Skin: denies: rash, lesions Neurological: denies: headache, weakness Physical Exam - Physical Exam Physical Exam: GENERAL: The patient is well-developed well-nourished. HENT: Normocephalic. Atraumatic. Patient has moist mucous membranes. EYES: Extraocular motions are intact. NECK: Supple. Trachea is midline. CHEST/LUNGS: Clear to auscultation. There is no respiratory distress noted. HEART/CARDIOVASCULAR: Regular. There is no tachycardia. There is no murmur. ABDOMEN: Abdomen is soft, nontender. Patient has normal bowel sounds. SKIN: Skin is warm and dry. NEURO: The patient is awake, alert, and oriented. The patient is cooperative. The patient has no focal neurologic deficits. Normal speech. Cranial nerves II through XII grossly intact. No facial asymmetry. MUSCULOSKELETAL: There is no tenderness or deformity. There is no limitation range of motion. ED Medical Decision Making - Medical Decision Making This patient presents to the emergency department with a complaint of elevated blood pressure this morning with a systolic of about 190. He had taken his blood pressure medications just prior to checking his blood pressure at home. At the time of presentation in my initial examination the patient's blood pressure is reasonable with an initial blood pressure of 153/86. Yesterday the patient had some basic labs that were unremarkable. Yesterday the patient also had a CT scan of the head without contrast that did not show any bleed, large vessel occlusion, or any other acute process. The patient was reevaluated multiple times over about 1.5 hours and his blood pressure improved and is essentially in the normal range. He has no physical complaints including any headache, chest pain, shortness of breath. For all these reasons I did not feel that there was any need for repeat imaging or laboratory studies. We discussed avoiding caffeine use and any excessive salt intake. He has been instructed to follow-up with his primary care physician in the next few days. Critical Care Time: No Critical care attestation.: If time is entered above; I have spent that time in minutes in the direct care of this critically ill patient, excluding procedure time. ED Disposition Clinical Impression: Hypertension Qualifiers: Hypertension type: essential hypertension Qualified Code(s): I10 - Essential (primary) hypertension Disposition: DC-01 TO HOME OR SELFCARE Is pt being admited?: No Condition: Stable Instructions: Managing Your Hypertension, Hypertension, Adult, Hypertension (ED) Additional Instructions: Please take your medications as previously prescribed. Try to stay away from foods that are high in salt and caffeinated products. Keep a blood pressure log. Please follow-up with your primary care physician in the next 1 to 2 days. Return to the emergency department with any worsening of your symptoms, new or concerning symptoms not addressed during this current emergency department visit, or with any acute distress. Referrals: ANNABELLE MEHTA MD [Primary Care Provider] - 2-3 Days Time of Disposition: 11:55
[2021-01-25 12:01] VITALS: BP 139/81
== END 2021-01-25 12:07 | disposition home or self-care (01) ==
LOC: ED 10:38
DX: I10 Essential (primary) hypertension (principal); Z79.899 Other long term (current) drug therapy